=== PATIENT | female | born 1960 | race Caucasian/White ===

== ENCOUNTER → 2021-09-24 12:43 | Outpatient (CLI) | payer SELFPAY ==
--- NOTE | 2021-09-24 12:59 | XR_ITS ---
PROCEDURE: XR ANKLE LT MIN 3V CLINICAL INDICATION: FALL COMPARISON: No exams were available for comparison FINDINGS: No fracture or dislocation. No lytic or blastic change. There is normal mineralization. Minimal spurring along the anterior distal tibia. Prominent posterior talar process. Other findings:None. IMPRESSION: No acute findings. Dictated by: Tereso Riley MD 09/24/2021 18:41 Tereso Riley MD in [place] 09/24/2021 18:41
--- NOTE | 2021-09-24 12:59 | XR_ITS ---
PROCEDURE: XR LUMBAR SPINE MIN 4V CLINICAL INDICATION: COMPARISON: No exams were available for comparison FINDINGS: No fracture or dislocation. Degenerative disc disease L5-S1. 4 mm anterolisthesis L4 on L5. Facet arthritic changes L5-S1. no lytic or blastic change. Mild degenerative changes of the hips and SI joints IMPRESSION: No acute fracture. Degenerative changes as described above Dictated by: Tereso Riley MD 09/24/2021 18:38 Tereso Riley MD in [place] 09/24/2021 18:38
--- NOTE | 2021-09-24 12:59 | XR_ITS ---
PROCEDURE: XR SHOULDER RT MIN 2V CLINICAL INDICATION: FALL Pain COMPARISON: No exams were available for comparison FINDINGS: No fracture or dislocation. No lytic or blastic change. There is normal mineralization. Subacromial stenosis. Mild osteoarthritic change of glenohumeral joint. Other findings:None. IMPRESSION: No acute findings. Dictated by: Tereso Riley MD 09/24/2021 18:40 Tereso Riley MD in [place] 09/24/2021 18:40
--- NOTE | 2021-09-24 12:59 | XR_ITS ---
PROCEDURE: XR HIP RT 2-3V W/PELVIS CLINICAL INDICATION: FALL Pain COMPARISON: No exams were available for comparison FINDINGS: No fracture or dislocation. Mild osteoarthritic change of the IMPRESSION: No acute findings. Dictated by: Tereso Riley MD 09/24/2021 18:39 Tereso Riley MD in [place] 09/24/2021 18:39
== END ==
PROVIDERS: PCP Family Medicine; Visit Provider Emergency Medicine
DX: M54.50 Low back pain, unspecified (principal); M25.551 Pain in right hip; M25.572 Pain in left ankle and joints of left foot; M25.511 Pain in right shoulder; W19.XXXA Unspecified fall, initial encounter
CPT/HCPCS: 72110; 73030; 73502; 73610

== ENCOUNTER 2022-03-18 11:26 | Emergency (ER) | payer SELFPAY ==
[2022-03-18 11:27] VITALS: BP 128/79; PULSE 73; RESP 20; TEMP 36.6; O2SAT 97; BMI 29.8
--- NOTE | 2022-03-18 11:46 | ECG_ITS ---
APPROVED REPORT Exam: Resting ECG HR:78 bpm ECG Measurements Heart Rate 78 AXES ND 148 P 56 QRSd 87 QRS 23 QT 390 T 71 QTc 423 Conclusion SINUS RHYTHM NORMAL ECG UNCONFIRMED REPORT Electronically signed by : Mik Jackson MD 03/19/2022 21:11:28
--- NOTE | 2022-03-18 11:57 | CT_ITS ---
FINAL REPORT CLINICAL HISTORY: dizzy FINDINGS: Axial images of the head were obtained without contrast. Coronal reformatted images were also obtained.This study was performed with techniques to keep radiation doses as low as reasonably achievable (ALARA). Individualized dose reduction techniques using automated exposure control or adjustment of mA and/or kV according to the patient's size were employed. There is no evidence of intracranial hemorrhage or mass. The ventricular size is within normal limits. There is no evidence of shift of the midline structures. No abnormal extra axial fluid collection is identified. No skull abnormality is seen on the bone window images. IMPRESSION: No acute intracranial abnormality. Reviewed, Interpreted and Dictated by Jam Narayanan III, MD Transcribed by Fercho Maldonado Authenticated by Jam Narayanan III, MD on 03/18/2022 12:39:08 PM [facility]
[2022-03-18 12:01] VITALS: BP 121/75; PULSE 74; RESP 18; O2SAT 96
[2022-03-18 12:12] LABS: Alanine Aminotransferase 27 U/L (12-78); Albumin Level 4.3 g/dl (3.5-5.0); Albumin/Globulin Ratio 1.4 (1.1-1.8); Alkaline Phosphatase 70 U/L (38-126); Anion Gap 12.6 mEq/L (5-15); Aspartate Amino Transferase 29 U/L (14-36); Basophils # 0.2 K/mm3 (0-0.2); Basophils % 2.8 % (0.1-2.0); Bilirubin,Total 0.5 mg/dl (0.2-1.3); Blood Urea Nitrogen 17 mg/dl (7-17); Calcium 9.2 mg/dl (8.4-10.2); Carbon Dioxide 23 mmol/L (22.0-30.0); Chloride 107 mmol/L (98-107); Creatinine Clearance Estimated 68 mL/min (50-200); Eosinophils # 0.2 K/mm3 (0.0-0.4); Eosinophils % 3.8 % (0.1-12.0); Estimated Glomerular Filt Rate 85 ml/min (>60); GFR (African American) 103 ML/MIN (>60); Glucose 131 mg/dl (74-100); Hematocrit 42.6 % (37.0-47.0); Hemoglobin 14.3 g/dL (12.2-16.2); Lipase 157 U/L (23-300); Lymphocytes # 2.2 K/mm3 (0.7-4.5); Lymphocytes % 35.9 % (10-50); Mean Corpuscular HGB Conc 33.7 g/dL (31.8-35.4); Mean Corpuscular Hemoglobin 29.5 pg (27.0-31.2); Mean Corpuscular Volume 87.6 fl (81-99); Mean Platelet Volume 7.8 fl (7.4-10.4); Monocytes # 0.3 K/mm3 (0.1-1.0); Monocytes % 4.6 % (1.7-9.3); Neutrophils # 3.2 K/mm3 (1.8-7.8); Neutrophils % 52.9 % (37.0-80.0); Platelet Count 281 K/mm3 (142-424); Potassium 3.6 mmoL/L (3.5-5.1); Red Blood Count 4.86 M/mm3 (4.20-5.40); Red Cell Distribution Width 13.6 % (11.5-17.5); Sodium 139 mmol/L (136-145); Total Protein,Serum 7.3 g/dl (6.3-8.2); White Blood Count 6.1 K/mm3 (4.8-10.8)
[2022-03-18 12:26] LABS: Troponin I < 0.01 ng/ml (0.00-0.034)
--- NOTE | 2022-03-18 12:27 | HMH.EDDIZZ ---
ED Disposition Clinical Impression: Benign paroxysmal positional vertigo Qualifiers: Laterality: unspecified laterality Qualified Code(s): H81.10 - Benign paroxysmal vertigo, unspecified ear Disposition: Home, Self-Care Condition on Discharge: Good Instructions: Vertigo Prescriptions: Meclizine HCl [Meclizine 25mg Tab] 25 mg PO BID #20 tab [facility] Ondansetron [Zofran 4mg ODT] 4 mg PO BIDP PRN #10 tab PRN Reason: Nausea Transmission Status: [facility] Referrals: Miller Lloyd MD [Primary Care Provider] - - Critical Care Critical Care Time: No Attestation: On 03/18/22, the high probability of a clinically significant, sudden or life threatening deterioration of the following system(s) required my full and direct attention, intervention and personal management. The time I documented below is in addition to time spent performing reported procedures but includes the following listed in this critical care notation. Medical Decision Making - Medical Records Medical records reviewed: Yes: I reviewed the patient's medical records. - Tu Inquiry Pt receiving controlled substance: No Vital Signs: 03/18/22 11:27 Temperature 97.9 F Temperature Source Oral Pulse Rate [Left Radial] 73 Respiratory Rate 20 Blood Pressure [Right Arm] 128/79 Blood Pressure Mean [Right Arm] 95 Blood Pressure Source [Right Arm] Automatic Cuff Blood Pressure Position [Right Arm] Sitting 02 Sat by Pulse Oximetry 97 Oxygen Delivery Method Room Air - Lab Data Lab Results 03/18/22 11:50: WBC 6.1, RBC 4.86, Hgb 14.3, Hct 42.6, MCV 87.6, MCH 29.5, MCHC 33.7, RDW 13.6, Plt Count 281, MPV 7.8, Neut % (Auto) 52.9, Lymph % (Auto) 35.9, [place] % (Auto) 4.6, Eos % (Auto) 3.8, Baso % (Auto) 2.8 H, Neut # (Auto) 3.2, Lymph # (Auto) 2.2, [place] # (Auto) 0.3, Eos # (Auto) 0.2, Baso # (Auto) 0.2 03/18/22 11:50: Sodium 139, Potassium 3.6, Chloride 107, Carbon Dioxide 23, Anion Gap 12.6, BUN 17, Creatinine 0.70, Estimated Creat Clear 68, Estimated GFR 85, Est GFR ( Amer) 103, Glucose 131 H, Calcium 9.2, Total Bilirubin 0.5, AST 29, ALT 27, Alkaline Phosphatase 70, Troponin I < 0.01, Total Protein 7.3, Albumin 4.3, Globulin 3.0, Albumin/Globulin Ratio 1.4, Lipase 157, TSH 2.31 Result diagrams: 03/18/22 11:50 03/18/22 11:50 Orders (Tests/Meds): ED MEDICATIONS Discontinued Medications Generic Name Dose Route Start Last Admin Trade Name Freq PRN Reason Stop Dose Admin Diazepam 5 mg 03/18/22 13:02 03/18/22 13:15 Diazepam 5mg Tablet PO 03/18/22 13:03 5 mg ONCE ONE Administration Sodium Chloride 1,000 mls @ 999 mls/hr 03/18/22 12:15 03/18/22 12:11 Sod Chlor 0.9% 1000ml Bag IV 03/18/22 13:15 999 mls/hr .Q1H1M GERALD Administration Meclizine HCl 50 mg 03/18/22 12:09 03/18/22 12:11 Meclizine 25mg Tablet PO 03/18/22 12:10 50 mg ONCE ONE Administration Ondansetron HCl 4 mg 03/18/22 12:09 03/18/22 12:11 Ondansetron 4mg/2ml Vial IV 03/18/22 12:10 4 mg ONCE ONE Administration Ondansetron HCl 4 mg 03/18/22 13:02 03/18/22 13:15 Ondansetron 4mg/2ml Vial IV 03/18/22 13:03 4 mg ONCE ONE Administration ORDERS Category Date Time Status Troponin I Q3H Lab 03/18/22 15:00 Ordered Troponin I Q3H Lab 03/18/22 18:00 Ordered - CT Data CT Scan: Head Time Received: 13:[address] Reviewed: Yes: I have reviewed the patient's CT results, I have viewed the radiologist's interpretation Preliminary Findings: Normal/NAD - ECG Data Tracing #1 I reviewed this ECG and interpreted as documented below: ECG initial impression date: 03/18/22 ECG initial impression time: 11:46 ECG normal with no acute: arrhythmias, ischemia, conduction abnormalities, chamber hypertrophy Normal Sinus Rhythm: Yes - Reevaluation(s) Time: 13:17 Reevaluation #1: On reevaluation, the patient is feeling better. Laboratory work unremarkable.
[2022-03-18 12:30] VITALS: BP 117/65; PULSE 71; RESP 18; O2SAT 96
[2022-03-18 12:43] LABS: Thyroid Stimulating Hormone 2.31 uIU/mL (0.465-4.68)
[2022-03-18 13:00] VITALS: BP 112/66; PULSE 63; RESP 18; O2SAT 97
[2022-03-18 13:30] VITALS: BP 112/66; PULSE 63; RESP 18; TEMP 36.6; O2SAT 97
== END 2022-03-18 13:36 | disposition home or self-care (01) ==
PROVIDERS: Emergency Provider Emergency Medicine; PCP Family Medicine
DX: H81.10 Benign paroxysmal vertigo, unspecified ear (principal)
CPT/HCPCS: 70450; 80053; 83690; 84443; 84484; 85025; 93005; 96361; 96374; 96375; 96376; 99284; J2405

== ENCOUNTER 2022-07-22 13:01 | Emergency (ER) | payer OTHER, SELFPAY ==
[2022-07-22 13:01] VITALS: BP 160/86; PULSE 90; RESP 18; TEMP 36.7; O2SAT 98; BMI 29.8
--- NOTE | 2022-07-22 13:08 | PC.NURSE ---
ED MD AT BEDSIDE FOR EVALUATION
--- NOTE | 2022-07-22 13:11 | XR_ITS ---
FINAL REPORT CLINICAL HISTORY: trauma, laceration to palm and fingers FINDINGS: LEFT HAND 2 views were obtained. There is no acute fracture or dislocation. There is mild degenerative change. There is no soft tissue abnormality. No foreign body is identified. IMPRESSION: No acute bony abnormality. No foreign body is identified. Reviewed, Interpreted and Dictated by Jam Narayanan III, MD Transcribed by Gail Isbell Authenticated and [facility]
--- NOTE | 2022-07-22 13:14 | HMH.EDWNDL ---
Discharge Plan Disposition Patient Disposition: Home, Self-Care Condition: Good Prescriptions Prescriptions: New cephalexin [cephalexin] 500 mg tablet 500 mg PO Q8 Qty: 30 0RF hydrocodone-acetaminophen 5-325 mg tablet 1 tab PO QID PRN (Reason: pain) Qty: 20 0RF No Action ondansetron 4 MG tablet,disintegrating 4 mg PO BIDP PRN (Reason: Nausea) Qty: 10 0RF meclizine 25 MG tablet,chewable 25 mg PO BID Qty: 20 0RF Activity Restrictions/Add. Instructions Additional Instructions/Restrictions: Cleanse wound daily with cool running water and apply antibiotic ointment and nonadhesive dressing such as Band-Aids. Ice and elevate as needed for discomfort and swelling. Wear the splint. You will be contacted by the hand center for follow-up next Wednesday. Return for concerns such as signs of infection to include increasing redness. Questions or concerns related to your hand to call [phone]. Clinical Impressions Clinical Impression: Laceration Instructions Patient Instructions: DI for Laceration Repair Discharge ED Provider: Mohit Prado Wound/Laceration HPI General Chief Complaint: Wound/Laceration Stated Complaint: lt hand lac Time Seen by Provider: 07/22/22 13:07 Mode of Arrival: Wheelchair Limitations: No Limitations Description of Symptoms (Recalled from ER Triage Doc. by RN): PT WAS HOLDING THE BLADE OF HEDGE TRIMMERS AND TURNED THEM ON. LACERATION TO LEFT INDEX AND RING FINGER History of Present Illness HPI narrative: Presents with multiple lacerations to the left hand sustained when she was trying to start hedge tremor while holding the hedge tremor blade reportedly. Aside from the hand injury she denies additional injury she describes the pain as moderate to severe and worse with movement of the digits. Related Data Previous Rx's Medication Instructions Recorded meclizine 25 mg chewable tablet 25 mg PO BID #20 tabs 03/18/22 ondansetron 4 mg disintegrating 4 mg PO BIDP PRN Nausea #10 tabs 03/18/22 tablet cephalexin 500 mg tablet 500 mg PO Q8 uti #30 tabs 07/22/22 hydrocodone 5 mg-acetaminophen 325 1 tab PO QID PRN pain #20 tabs 07/22/22 mg tablet Allergies Allergy/AdvReac Type Severity Reaction Status Date / Time meloxicam [From Mobic] Allergy Verified 03/18/22 11:57 [facility] Medical History No significant past medical history Family History Other No significant family history Social History Smoking Status: Never smoker alcohol intake: never current occupational status: retired Travel in the last 8 weeks: None ROS Obtained: Yes All systems reviewed & no additional complaints except as documented Constitutional Constitutional: Reports system reviewed and no additional complaints, except as documented Physical Exam General General appearance: alert and anxious Head Head exam: atraumatic Eye Eye exam: Present normal appearance Neck Neck exam: Present normal inspection Chest Chest inspection: Present normal inspection Respiratory Respiratory exam: Present normal lung sounds bilaterally Cardiovascular Cardiovascular exam: Present regular rate and normal rhythm Abdominal Exam Abdominal exam: Present soft; Absent tenderness External exam: Present normal external exam Extremities Exam Extremities exam: Present other (The volar aspect of the left hand there are multiple lacerations noted to the right ring finger as well as the left index finger. Positive range of motion. Neurovascular appear to be intact.) Back Exam Back exam: Present normal inspection Neurological Exam Neurological exam: Present alert and oriented X3 Psychiatric Psychiatric exam: Present anxious Skin Skin exam: Present warm and dry Lymphatic Lymphatic Findings: no adenopathy Medical Decision Making Tu Inquiry Pt rece
--- NOTE | 2022-07-22 13:18 | PC.NURSE ---
portable rad at the bedside
--- NOTE | 2022-07-22 13:23 | PC.NURSE ---
XR AT BEDSIDE
[2022-07-22 13:30] VITALS: BP 152/90; PULSE 90; RESP 18; O2SAT 95
[2022-07-22 14:00] VITALS: BP 132/72; PULSE 74; RESP 18; O2SAT 96
--- NOTE | 2022-07-22 14:24 | PC.NURSE ---
ER DOCTOR ASKED FOR A HAND SPECIALIST TO BE CALLED. CONTACT WAS MADE WITH [facility] IN [place]. THEY DID NOT ACCEPT PTS INSURANCE CALLED [facility] PER THE ER DOCTOR TO SPEAK WITH A HAND SURGEON MADE CONTACT WITH AND AWAITING A CALLBACK
[2022-07-22 14:30] VITALS: BP 132/68; PULSE 67; RESP 18; O2SAT 96
[2022-07-22 15:00] VITALS: BP 134/74; PULSE 66; RESP 17; O2SAT 97
--- NOTE | 2022-07-22 15:01 | PC.NURSE ---
ROUNDED ON PT, WARM BLANKET PROVIDED
--- NOTE | 2022-07-22 15:04 | PC.NURSE ---
CALLED [facility] AGAIN TO CHECK ON THE STATUS OF THE HAND SURGEON AND WAS ADVISED THAT THEY WERE WORKING ON GETTING BACK TO [place].
--- NOTE | 2022-07-22 15:33 | PC.NURSE ---
ED SPEAKING WITH HAND
--- NOTE | 2022-07-22 15:34 | PC.NURSE ---
[facility] CALLED BACK TO SPEAK WITH ER DOCTOR
--- NOTE | 2022-07-22 15:43 | PC.NURSE ---
ED MD AT BEDSIDE
[2022-07-22 15:44] VITALS: BMI 21.6
[2022-07-22 16:40] VITALS: BP 134/74; PULSE 66; RESP 17; TEMP 36.8; O2SAT 100
== END 2022-07-22 16:40 | disposition home or self-care (01) ==
PROVIDERS: Emergency Provider Emergency Medicine; PCP Family Medicine
DX: S61.214A Laceration without foreign body of right ring finger without damage to nail, initial encounter (principal); S61.217A Laceration without foreign body of left little finger without damage to nail, initial encounter; W29 Contact with other powered hand tools and household machinery; Y93.H2 Activity, gardening and landscaping; Y92.096 Garden or yard of other non-institutional residence as the place of occurrence of the external cause; Z23 Encounter for immunization; Z79.899 Other long term (current) drug therapy
CPT/HCPCS: 73120; 90471; 90715; 99283

== ENCOUNTER 2022-09-02 23:14 | Emergency (ER) | payer OTHER, SELFPAY ==
[2022-09-02 23:16] VITALS: BP 155/80; PULSE 79; RESP 16; TEMP 36.6; O2SAT 98; BMI 29.8
--- NOTE | 2022-09-02 23:46 | HMH.EDGENADL ---
Discharge Plan Disposition Patient Disposition: Home, Self-Care Condition: Good Prescriptions Prescriptions: New doxycycline hyclate 100 mg capsule 100 mg PO BID 10 Days Qty: 20 0RF ondansetron 4 mg tablet,disintegrating 4 mg PO Q8H PRN (Reason: nausea and vomiting) 4 Days Qty: 12 0RF No Action cephalexin [cephalexin] 500 mg tablet 500 mg PO Q8 Qty: 30 0RF hydrocodone-acetaminophen 5-325 mg tablet 1 tab PO QID PRN (Reason: pain) Qty: 20 0RF ondansetron 4 MG tablet,disintegrating 4 mg PO BIDP PRN (Reason: Nausea) Qty: 10 0RF meclizine 25 MG tablet,chewable 25 mg PO BID Qty: 20 0RF Referrals Follow up/Referrals: Joann Tubbs [Primary Care Provider] - See instructions Activity Restrictions/Add. Instructions Additional Instructions/Restrictions: You were evaluated in the emergency department today. 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 Also take yizj-pub-yjrmfvb medications, such as Flonase and allergy medications to support you through this illness. Follow-up with your primary care provider over the next 3 days to ensure that you are doing well. Return to the emergency department for any new or worsening symptoms. Clinical Impressions Clinical Impression: Community acquired pneumonia, Sinusitis Instructions Patient Instructions: Pneumonia-Adult, DI for Sinusitis Discharge ED Provider: Jasmina Garza General Adult HPI General Chief complaint: Upper Respiratory Infection Stated complaint: Cough,chest congestion Time Seen by Provider: 09/02/22 23:17 Mode of Arrival: Ambulatory Limitations: No Limitations Description of Symptoms (Recalled from ER Triage Doc. by RN): pt c/o cough, congestion, TAPIA, runny nose x several days. History of Present Illness HPI narrative: This patient is a 62-year-old female with history of BPPV presenting to the emergency department for evaluation of cough and sinus congestion that have been worsening over the last week. She initially had a period where she started to get better, however her symptoms then started getting worse today. She states that she feels like she has stuff deep within her chest that she is not able to cough up. She has been taking mvof-vbu-doovxlp medications at home with no significant improvement. Nothing seems to make her symptoms worse. She has no other concerns at this time. She has no history of cardiopulmonary issues and is not a smoker. She denies any chest pain, shortness of breath, abdominal pain, vomiting, changes bowel movements, rashes, or swelling. Related Data Previous Rx's Medication Instructions Recorded meclizine 25 mg chewable tablet 25 mg PO BID #20 tabs 03/18/22 ondansetron 4 mg disintegrating 4 mg PO BIDP PRN Nausea #10 tabs 03/18/22 tablet cephalexin 500 mg tablet 500 mg PO Q8 uti #30 tabs 07/22/22 hydrocodone 5 mg-acetaminophen 325 1 tab PO QID PRN pain #20 tabs 07/22/22 mg tablet doxycycline hyclate 100 mg capsule 100 mg PO BID 10 days #20 caps 09/02/22 ondansetron 4 mg disintegrating 4 mg PO Q8H PRN nausea and 09/02/22 tablet vomiting 4 days #12 tabs Allergies Allergy/AdvReac Type Severity Reaction Status Date / Time meloxicam [From [facility]] Allergy Verified 03/18/22 11:57 [facility] Medical History No significant past medical history Family History Other No significant family history Social History Smoking Status: Never smoker alcohol intake: never current occupational status: retired Travel in the last 8 weeks: None ROS Obtained: Yes All systems reviewed & no additional complaints except as documented 14 point review of systems obtained and negative except as mentioned in HPI. Physical Exam General General appearance: alert and in no apparent distress
[2022-09-03 00:17] VITALS: BP 149/73; PULSE 79; RESP 16; TEMP 36.6; O2SAT 98
== END 2022-09-03 00:19 | disposition home or self-care (01) ==
PROVIDERS: Emergency Provider Emergency Medicine; PCP Emergency Medicine
DX: J18.9 Pneumonia, unspecified organism (principal); F32.9 Major depressive disorder, single episode, unspecified; Z88.8 Allergy status to other drugs, medicaments and biological substances
CPT/HCPCS: 99283

== ENCOUNTER 2022-09-18 17:25 | Emergency (ER) | payer OTHER, SELFPAY ==
[2022-09-18 18:10] VITALS: BP 141/86; PULSE 62; RESP 18; TEMP 36.8; O2SAT 98; BMI 29.8
--- NOTE | 2022-09-18 18:52 | EXP.UTC ---
Discharge Plan Disposition Patient Disposition: Home, Self-Care Condition: Good Prescriptions Prescriptions: New amoxicillin-pot clavulanate 875-125 mg Tablet 1 tab PO Q12H 7 Days Qty: 14 0RF guaifenesin [Mucinex] 600 mg tablet extended release 12hr 600 mg PO BID PRN (Reason: cough) Qty: 20 0RF No Action cephalexin [cephalexin] 500 mg tablet 500 mg PO Q8 Qty: 30 0RF hydrocodone-acetaminophen 5-325 mg tablet 1 tab PO QID PRN (Reason: pain) Qty: 20 0RF doxycycline hyclate 100 mg capsule 100 mg PO BID 10 Days Qty: 20 0RF ondansetron 4 mg tablet,disintegrating 4 mg PO Q8H PRN (Reason: nausea and vomiting) 4 Days Qty: 12 0RF ondansetron 4 MG tablet,disintegrating 4 mg PO BIDP PRN (Reason: Nausea) Qty: 10 0RF meclizine 25 MG tablet,chewable 25 mg PO BID Qty: 20 0RF Referrals Follow up/Referrals: Miller Lloyd MD [Primary Care Provider] - See instructions Activity Restrictions/Add. Instructions Additional Instructions/Restrictions: Take medication as prescribed Continue to use your Flonase as prescribed Follow up with your Family Doctor next week if no improvement or any worsening of symptoms Return if needed Straight to ER if any life threatening symptoms Clinical Impressions Clinical Impression: Otitis media Instructions Patient Instructions: Middle Ear Infection, DI for Tooth Abscess Discharge ED Provider: Iliana Dennis [facility] General Stated complaint: RSV R ear Mode of Arrival: Ambulatory Source of Information: Patient Limitations: No Limitations Time Seen by Provider: 09/18/22 18:53 Description of Symptoms (Recalled from Triage Doc. by RN): PATIENT C/O RIGHT EAR ACHE, TOOTHACHE, AND CHEST CONGESTION HEENT Symptoms (Recalled from RN notes): Yes Resp Symptoms (Recalled from RN notes): No Skin Symptoms (Recalled from RN notes): No MS Symptoms (Recalled from RN notes): No Functional Status (Recalled from RN notes): WNL History of Present Illness Provider Complaint: Patient states that she had RSV a few weeks ago and finished her medication that she was on for that but now has started having pain in her right ear, having pain in right lower back tooth and pressure in right side of sinuses States that she wasnt sure if she may have an ear infection or if her tooth is causing her ear to hurt so she came in to get it checked Related Data Previous Rx's Medication Instructions Recorded meclizine 25 mg chewable tablet 25 mg PO BID #20 tabs 03/18/22 ondansetron 4 mg disintegrating 4 mg PO BIDP PRN Nausea #10 tabs 03/18/22 tablet cephalexin 500 mg tablet 500 mg PO Q8 uti #30 tabs 07/22/22 hydrocodone 5 mg-acetaminophen 325 1 tab PO QID PRN pain #20 tabs 07/22/22 mg tablet doxycycline hyclate 100 mg capsule 100 mg PO BID 10 days #20 caps 09/02/22 ondansetron 4 mg disintegrating 4 mg PO Q8H PRN nausea and 09/02/22 tablet vomiting 4 days #12 tabs amoxicillin 875 mg-potassium 1 tab PO Q12H 7 days #14 tabs 09/18/22 clavulanate 125 mg tablet guaifenesin 600 mg tablet, 600 mg PO BID PRN cough #20 tabs 09/18/22 extended release 12 hr (Mucinex) Allergies Allergy/AdvReac Type Severity Reaction Status Date / Time meloxicam [From Mobic] Allergy Verified 03/18/22 11:57 Worker's Comp Is this a Worker's Comp case?: No PFSH PFSH Surgical History (Updated 09/18/22 @ 18:25 by Amy Key RN) History of colonoscopy History of hysterectomy Family History Other No significant family history Social History (Updated 09/18/22 @ 18:25 by Amy Key RN) Smoking Status: Never smoker alcohol intake: never current occupational status: retired and other Travel in the last 8 weeks: None ROS Obtained: Yes All systems reviewed & no additional complaints except as documented and Yes Systems reviewed as appropriate & no additional complaints except as documented Constitutional Constitu
[2022-09-18 19:00] VITALS: BP 141/86; PULSE 62; RESP 18; TEMP 36.8; O2SAT 98
== END 2022-09-18 19:18 | disposition home or self-care (01) ==
PROVIDERS: Emergency Provider Nurse Practitioner; PCP Family Medicine
DX: H66.90 Otitis media, unspecified, unspecified ear (principal)
CPT/HCPCS: 99212; G0463

== ENCOUNTER 2023-08-29 15:22 | Emergency (ER) | payer OTHER, SELFPAY ==
[2023-08-29 15:24] VITALS: BP 150/79; PULSE 72; RESP 18; TEMP 36.7; O2SAT 96; BMI 29.8
--- NOTE | 2023-08-29 16:35 | EXP.UTC ---
Discharge Plan Disposition Patient Disposition: Home, Self-Care Condition: Good Prescriptions Prescriptions: New meclizine 25 mg tablet 25 mg PO Q6HP PRN (Reason: dizziness) Qty: 30 0RF ondansetron 4 mg Tablet,Disintegrating 4 mg PO Q8H PRN (Reason: Nausea) Qty: 20 0RF No Action hydrocodone-acetaminophen 5-325 mg tablet 1 tab PO QID PRN (Reason: pain) Qty: 20 0RF meclizine 25 MG tablet,chewable 25 mg PO BID Qty: 20 0RF Referrals Follow up/Referrals: Miller Lloyd MD [Primary Care Provider] - See instructions Activity Restrictions/Add. Instructions Additional Instructions/Restrictions: Drink plenty of fluids. Take tylenol or ibuprofen for pain or fever. Take the medications as directed. Follow up with your regular doctor. GO TO THE ER FOR ANY WORSENING SYMPTOMS The meclizine (antivert) will make you drowsy, so don't drive or operate heavy machinery after taking it. Clinical Impressions Clinical Impression: Benign paroxysmal positional vertigo Instructions Patient Instructions: DI for Vertigo, DI for Benign Paroxysmal Positional Vertigo Discharge ED Provider: Quinten Capps [facility] General Stated complaint: dizzy,sick at her stomach,headache Time Seen by Provider: 08/29/23 16:35 Related Data Previous Rx's Medication Instructions Recorded meclizine 25 mg chewable tablet 25 mg PO BID #20 tabs 03/18/22 hydrocodone 5 mg-acetaminophen 325 1 tab PO QID PRN pain #20 tabs 07/22/22 mg tablet meclizine 25 mg tablet 25 mg PO Q6HP PRN dizziness #30 08/29/23 tabs ondansetron 4 mg disintegrating 4 mg PO Q8H PRN Nausea #20 tabs 08/29/23 tablet Allergies Allergy/AdvReac Type Severity Reaction Status Date / Time meloxicam [From Mobic] Allergy Verified 08/29/23 16:59 [facility] Disclaimer: The information contained in this section may have been updated after the patient was seen, as this information can be updated by other users. Surgical History History of colonoscopy History of hysterectomy Family History Other No significant family history Social History Smoking Status: Never smoker alcohol intake: never current occupational status: retired and other Travel in the last 8 weeks: None ROS Obtained: Yes All systems reviewed & no additional complaints except as documented Constitutional Constitutional: Denies chills, Denies fever(s), Reports headache(s) and Denies weakness Eyes Eyes: Denies eye discharge and Denies loss of vision ENT Ears, Nose, Mouth, and Throat: Denies disequilibrium, Denies dizziness, Denies otalgia, Reports headache(s), Denies sore throat and Denies vertigo Cardiovascular Cardiovascular: Denies chest pain and Denies syncope Respiratory Respiratory: Denies shortness of breath, Denies chest congestion, Denies cough, Denies stridor and Denies wheezing Gastrointestinal Gastrointestingal: Denies nausea or vomiting Musculoskeletal Musculoskeletal: Reports system reviewed and no additional complaints, except as documented, Denies abnormal gait, Denies arthralgias and Denies numbness Integumentary/Breasts Skin/Breast: Denies rash Neurologic Neurologic: Denies abnormal gait, Denies abnormal speech, Denies confusion, Denies disequilibrium, Denies dizziness, Denies focal weakness, Reports headache(s), Denies lack of coordination, Denies loss of vision, Denies memory loss, Denies numbness, Denies paresthesias, Denies radicular pain, Denies seizure-like activity, Denies syncope, Denies tremor(s), Denies vertigo and Denies weakness Allergic/Immunologic Allergic/Immunologic: Denies wheezing Physical Exam General General appearance: alert and in no apparent distress Head Head exam: atraumatic, normocephalic and normal inspection Eye Eye exam: Present normal appearance, PERRL and EOMI
[2023-08-29 16:43] VITALS: BMI 29.8
[2023-08-29 17:24] LABS: UTC Influenza A Antigen Negative (Negative); UTC Influenza B Antigen Negative (Negative)
[2023-08-29 17:37] LABS: Anion Gap 13.8 mEq/L (5-15); Blood Urea Nitrogen 20 mg/dl (7-17); Calcium 9.3 mg/dl (8.4-10.2); Carbon Dioxide 23 mmol/L (22.0-30.0); Chloride 106 mmol/L (98-107); Creatinine Clearance Estimated 66 mL/min (50-200); Estimated Glomerular Filt Rate 84 ml/min (>60); GFR (African American) 102 ML/MIN (>60); Glucose 100 mg/dl (74-100); Potassium 3.8 mmoL/L (3.5-5.1); Sodium 139 mmol/L (136-145)
[2023-08-29 17:38] LABS: Basophils % 0.4 % (0.1-2.0); Eosinophils # 0.3 K/mm3 (0.0-0.4); Eosinophils % 3.7 % (0.1-12.0); Hematocrit 43.8 % (37.0-47.0); Lymphocytes # 1.9 K/mm3 (0.7-4.5); Lymphocytes % 25.3 % (10-50); Mean Corpuscular HGB Conc 34.3 g/dL (31.8-35.4); Mean Corpuscular Hemoglobin 30.5 pg (27.0-31.2); Mean Corpuscular Volume 88.8 fl (81-99); Monocytes # 0.3 K/mm3 (0.1-1.0); Monocytes % 4.4 % (1.7-9.3); Neutrophils # 4.9 K/mm3 (1.8-7.8); Neutrophils % 66.1 % (37.0-80.0); Platelet Count 247 K/mm3 (142-424); Red Blood Count 4.94 M/mm3 (4.20-5.40); Red Cell Distribution Width 13.8 % (11.5-17.5); White Blood Count 7.5 K/mm3 (4.8-10.8)
[2023-08-29 18:12] VITALS: BP 150/79; PULSE 72; RESP 18; TEMP 36.7; O2SAT 96
== END 2023-08-29 18:12 | disposition home or self-care (01) ==
PROVIDERS: Emergency Provider Nurse Practitioner Family; PCP Family Medicine
DX: H81.10 Benign paroxysmal vertigo, unspecified ear (principal); R51.9 Headache, unspecified
CPT/HCPCS: 80048; 85025; 87804; 96372; 99212; 99214; G0463

== ENCOUNTER 2024-02-06 05:28 | Emergency (ER) | payer MEDICAID, OTHER, SELFPAY ==
[2024-02-06] VITALS (8 sets, daily range): BP systolic 121–139; BP diastolic 59–81; PULSE 59–76; RESP 15–21; TEMP 36.7–37.1; O2SAT 94–99; BMI 29.8
--- NOTE | 2024-02-06 05:29 | ECG_ITS ---
APPROVED REPORT Exam: Resting ECG HR:66 bpm ECG Measurements Heart Rate 66 AXES AR 150 P 71 QRSd 82 QRS 65 QT 408 T 79 QTc 421 Conclusion SINUS RHYTHM NORMAL ECG UNCONFIRMED REPORT Electronically signed by : MAO MORALES, 02/07/2024 06:30:01
--- NOTE | 2024-02-06 05:39 | XR_ITS ---
PROCEDURE INFORMATION: Exam: XR Chest Exam date and time: 02/06/2024 5:42 AM Age: 63 years old Clinical indication: Pain; Chest pressure; Additional info: Cp TECHNIQUE: Imaging protocol: Radiologic exam of the chest. Views: 1 view. COMPARISON: CR XR SHOULDER RT MIN 2V 09/24/2021 1:06 PM FINDINGS: Lungs: Unremarkable. No consolidation. Pleural spaces: Unremarkable. No pleural effusion. No pneumothorax. Heart/Mediastinum: Unremarkable. No cardiomegaly. Bones/joints: Unremarkable. IMPRESSION: No acute findings.
[2024-02-06 05:46] LABS: Basophils # 0.1 K/mm3 (0-0.2); Basophils % 1.2 % (0.1-2.0); Eosinophils # 0.4 K/mm3 (0.0-0.4); Eosinophils % 5.5 % (0.1-12.0); Hematocrit 44.3 % (37.0-47.0); Hemoglobin 14.2 g/dL (12.2-16.2); Lymphocytes # 2.6 K/mm3 (0.7-4.5); Lymphocytes % 39.1 % (10-50); Mean Corpuscular HGB Conc 32.1 g/dL (31.8-35.4); Mean Corpuscular Hemoglobin 29.4 pg (27.0-31.2); Mean Corpuscular Volume 91.4 fl (81-99); Mean Platelet Volume 7.7 fl (7.4-10.4); Monocytes # 0.3 K/mm3 (0.1-1.0); Neutrophils # 3.2 K/mm3 (1.8-7.8); Neutrophils % 49.1 % (37.0-80.0); Platelet Count 274 K/mm3 (142-424); Red Blood Count 4.85 M/mm3 (4.20-5.40); Red Cell Distribution Width 13.5 % (11.5-17.5); White Blood Count 6.6 K/mm3 (4.8-10.8)
[2024-02-06] MEDS: ACETAMINOPHEN 500MG TAB 1000 MG PO (05:46)
[2024-02-06] MEDS: BELLADONNA ALKALOIDS 60 ML ML PO (05:46)
[2024-02-06] MEDS: ASPIRIN 81MG CHEWABLE TABLET 81 MG PO (05:47)
--- NOTE | 2024-02-06 05:48 | HMH.EDGENADL ---
Discharge Plan Disposition Patient Disposition: Still a Patient Condition: Good Prescriptions Prescriptions: New methocarbamol 500 mg tablet 500 mg PO Q8H Qty: 90 0RF No Action meclizine 25 mg tablet 25 mg PO Q6HP PRN (Reason: dizziness) Qty: 30 0RF Referrals Follow up/Referrals: Miller Lloyd MD [Primary Care Provider] - See instructions Mau Kim MD [Staff Physician] - See instructions Activity Restrictions/Add. Instructions Additional Instructions/Restrictions: As we discussed, your workup today is reassuring for any heart cause of your chest pain and back pain, that being said you do have some risk factors to have cardiac type chest pain. 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 I have placed a referral. Please take ibuprofen as needed for your symptoms. I have additionally prescribed a muscle relaxant that may help as well. Please return with any new or worsening symptoms. Clinical Impressions Clinical Impression: Chest pain at rest Discharge ED Provider: Ronald Sewell General Adult HPI <Jasbir Avery MD - Last Filed: 02/06/24 23:32> General Chief complaint: Chest Pain Stated complaint: Chest pain Time Seen by Provider: 02/06/24 05:30 Mode of Arrival: Ambulatory Source of Information: Patient Limitations: No Limitations Description of Symptoms (Recalled from ER Triage Doc. by RN): pt c/o dull achy lt side chest pain with radiatin down lt arm x 3 days. Pt states she took 3 81mg ASA 45 mins prior to arrival History of Present Illness HPI narrative: 63-year-old female with no reported past medical history presents with chest pain. She reports that central nature, associated with pressure. It radiates down the left arm as well. It has been going on for several days, but worsened last night/evening and has made it more difficult to sleep tonight. She took 381 mg aspirin shortly prior to arrival. She denies any cardiac history, denies any history of blood clots. Denies any hypertension hyperlipidemia etc. She reports no recent trauma fever or illness. Denies abdominal pain, nausea vomiting diarrhea. Related Data Previous Rx's Medication Instructions Recorded meclizine 25 mg tablet 25 mg PO Q6HP PRN dizziness #30 08/29/23 tabs methocarbamol 500 mg tablet 500 mg PO Q8H #90 tabs 02/06/24 Allergies Allergy/AdvReac Type Severity Reaction Status Date / Time meloxicam [From Mobic] Allergy Verified 08/29/23 16:59 PFSH <Jasbir Avery MD - Last Filed: 02/06/24 23:32> [facility] Disclaimer: The information contained in this section may have been updated after the patient was seen, as this information can be updated by other users. Surgical History History of hysterectomy History of colonoscopy Family History Other No significant family history Social History Smoking Status: Never smoker alcohol intake: never current occupational status: retired and other Travel in the last 8 weeks: None <Jasbir Avery MD - Last Filed: 02/06/24 23:32> ROS Obtained: Yes All systems reviewed & no additional complaints except as documented Physical Exam <Jasbir Avery MD - Last Filed: 02/06/24 23:32> General General appearance: alert and in no apparent distress Head Head exam: atraumatic and normocephalic Eye Eye exam: Present normal appearance, PERRL and EOMI ENT ENT exam: Present normal oropharynx and normal external ear exam Neck Neck exam: Present normal inspection and full ROM Chest Chest inspection: Present normal inspection and symmetric chest wall rise; Absent tenderness Respiratory Respiratory exam: Present normal lung sounds bilaterally; Absent respiratory distress Cardiovascular Cardiovascular exam: Present regular rate and normal rhythm Abdominal Exam Abdominal exam: Present soft; Absent distention, tenderness or guarding Extremities Exam Extremities exam: Present normal inspection; Absent edema or joint swelling Back Exam Back exam: Present normal inspection; Absent tenderness Neurological Exam Neurological exam: Present alert and oriented X3; Absent motor sensory deficit Psychiatric Psychiatric exam: Present normal affect and normal mood Skin Skin exam: Present warm, dry and normal color Lymphatic Lymphatic Findings: no adenopathy Medical Decision Making <Jasbir Avery MD - Last Filed: 02/06/24 23:32> Medical Records Medical records reviewed: Yes I reviewed the patient's medical records. Tu Inquiry Pt receiving controlled substance: No Tu was queried for this patient: No Vital Signs: 02/06/24 05:28 02/06/24 06:01 02/06/24 07:00 Temperature 98.1 F Temperature Source Oral Pulse Rate 71 Pulse Rate [Right] 76 Respiratory Rate 16 16 21 Blood Pressure 129/76 123/67 Blood Pressure [Right Arm] 139/59 L Blood Pressure Mean 93 Blood Pressure Mean [Right Arm] 85 02 Sat by Pulse Oximetry 99 96 02/06/24 07:30 02/06/24 08:00 02/06/24 08:30 Temperature Temperature Source Pulse Rate 75 69 59 L Pulse Rate [Right] Respiratory Rate 18 18 18 Blood Pressure 125/75 134/81 121/79 Blood Pressure [Right Arm] Blood Pressure Mean 88 93 89 Blood Pressure Mean [Right Arm] 02 Sat by Pulse Oximetry 94 L 96 02/06/24 09:00 02/06/24 09:25 Temperature 98.7 F Temperature Source Pulse Rate 70 75 Pulse Rate [Right] Respiratory Rate 16 15 Blood Pressure 122/75 122/75 Blood Pressure [Right Arm] Blood Pressure Mean 86 Blood Pressure Mean [Right Arm] 02 Sat by Pulse Oximetry 96 Lab Data Lab results reviewed: Yes I reviewed the patient's lab results. Lab Results 02/06/24 05:30: WBC 6.6, RBC 4.85, Hgb 14.2, Hct 44.3, MCV 91.4, MCH 29.4, MCHC 32.1, RDW 13.5, Plt Count 274, MPV 7.7, Neut % (Auto) 49.1, Lymph % (Auto) 39.1, Door % (Auto) 5.0, Eos % (Auto) 5.5, Baso % (Auto) 1.2, Neut # (Auto) 3.2, Lymph # (Auto) 2.6, Door # (Auto) 0.3, Eos # (Auto) 0.4, Baso # (Auto) 0.1, D-Dimer 0.64 H, Sodium 138, Potassium 3.8, Chloride 107, Carbon Dioxide 24, Anion Gap 10.8, BUN 19 H, Creatinine 0.70, Estimated Creat Clear 66, Estimated GFR 84, Est GFR ( Amer) 102, Glucose 111 H, Calcium 9.1, Total Bilirubin 0.4, AST 35, ALT 30, Alkaline Phosphatase 73, Troponin I < 0.01, Total Protein 7.4, Albumin 4.2, Globulin 3.2, Albumin/Globulin Ratio 1.3 02/06/24 08:27: Troponin I < 0.01 02/06/24 05:30 02/06/24 05:30 Orders (Tests/Meds): ED MEDICATIONS Discontinued Medications Generic Name Dose Route Start Last Admin Trade Name Jameel PRN Reason Stop Dose Admin Acetaminophen 1,000 mg 02/06/24 05:37 02/06/24 05:46 Acetaminophen 500mg Tab PO 02/06/24 05:38 1,000 mg ONCE ONE Administration Aspirin 81 mg 02/06/24 05:37 02/06/24 05:47 Aspirin Ec 81mg Tablet PO 02/06/24 05:38 Not Given ONCE ONE Aspirin 81 mg 02/06/24 05:46 02/06/24 05:47 Aspirin 81mg Chewable Tablet PO 02/06/24 05:47 81 mg ONCE ONE Administration Belladonna Alkaloids 60 ml 02/06/24 05:37 02/06/24 05:46 Belladonna Alkaloids 60 Ml Ml PO 02/06/24 05:38 60 ml ONCE ONE Administration Ondansetron HCl 4 mg 02/06/24 07:26 02/06/24 07:27 Ondansetron 4mg/2ml Vial IV 02/06/24 07:27 4 mg ONCE ONE Administration ORDERS Category Date Time Status CXR --portable [XR chest portable] Stat Exams 02/06/24 05:39 Completed CBC w/Auto Diff [Complete Blood Count Auto Diff] Stat Lab 02/06/24 05:30 Completed CMP [Comprehensive Metabolic Panel] Stat Lab 02/06/24 05:30 Completed D-Dimer Stat Lab 02/06/24 05:30 Completed Troponin I Q3H Lab 02/06/24 05:30 Completed Troponin I Q3H Lab 02/06/24 08:27 Completed ECG Data Tracing #1: I reviewed this ECG and interpreted as documented below: ECG initial impression date: 02/06/24 ECG initial impression time: 05:29 ECG normal with no acute: arrhythmias, ischemia, conduction abnormalities, chamber hypertrophy Normal Sinus Rhythm: Yes HEART Score History (anamnesis): Slightly suspicious ECG: Normal Age: 45-65 years Risk factors: No known risk factors Troponin: </= normal limit HEART Score: 1 Medical Decision Narrative: 63-year-old female with no significant past medical history presents with several days of worsening central chest pain radiating down the arm. History was obtained interactive discussion with patient, chart review. On arrival, patient is [afebrile, hemodynamically stable, satting appropriately, alert, oriented x4, GCS 15], moving all extremities spontaneously. Full physical exam performed and significant for no significant physical exam abnormality Differential includes but is not limited to ACS, PE, musculoskeletal chest pain, esophageal spasm, GERD, lung pathology. Patient was given 81 mg aspirin to complete full dose, and also given Tylenol and GI cocktail. For symptomatic management and correction of underlying abnormalities. Workup initiated including CBC CMP troponin EKG chest x-ray. Unable to PERC out secondary to age, D-dimer obtained. On re-evaluation, patient [remains afebrile, HD stable.] Laboratory workup independently interpreted by me and significant for D-dimer negative by years criteria, initial troponin undetectably low, other labs nonactionable.. Imaging independently interpreted by me and significant for clear lungs bilaterally without evidence of focal opacity. See radiology read for full review of final results. EKG independently interpreted by me and significant for normal sinus rhythm. CT PE was considered, but deemed unnecessary due to negative D-dimer. At 6:10 AM patient was placed in ED observation status in order to obtain serial troponins and prevent potentially unnecessary admission. At this time care was handed off to oncoming physician. <Ronald Sewell MD - Last Filed: 02/06/24 10:33> Vital Signs: 02/06/24 05:28 02/06/24 06:01 02/06/24 07:00 Temperature 98.1 F Temperature Source Oral Pulse Rate 71 Pulse Rate [Right] 76 Respiratory Rate 16 16 21 Blood Pressure 129/76 123/67 Blood Pressure [Right Arm] 139/59 L Blood Pressure Mean 93 Blood Pressure Mean [Right Arm] 85 02 Sat by Pulse Oximetry 99 96 02/06/24 07:30 02/06/24 08:00 02/06/24 08:30 Temperature Temperature Source Pulse Rate 75 69 59 L Pulse Rate [Right] Respiratory Rate 18 18 18 Blood Pressure 125/75 134/81 121/79 Blood Pressure [Right Arm] Blood Pressure Mean 88 93 89 Blood Pressure Mean [Right Arm] 02 Sat by Pulse Oximetry 94 L 96 02/06/24 09:00 02/06/24 09:25 Temperature 98.7 F Temperature Source Pulse Rate 70 75 Pulse Rate [Right] Respiratory Rate 16 15 Blood Pressure 122/75 122/75 Blood Pressure [Right Arm] Blood Pressure Mean 86 Blood Pressure Mean [Right Arm] 02 Sat by Pulse Oximetry 96 Lab Data Lab Results 02/06/24 05:30: WBC 6.6, RBC 4.85, Hgb 14.2, Hct 44.3, MCV 91.4, MCH 29.4, MCHC 32.1, RDW 13.5, Plt Count 274, MPV 7.7, Neut % (Auto) 49.1, Lymph % (Auto) 39.1, Door % (Auto) 5.0, Eos % (Auto) 5.5, Baso % (Auto) 1.2, Neut # (Auto) 3.2, Lymph # (Auto) 2.6, Door # (Auto) 0.3, Eos # (Auto) 0.4, Baso # (Auto) 0.1, D-Dimer 0.64 H, Sodium 138, Potassium 3.8, Chloride 107, Carbon Dioxide 24, Anion Gap 10.8, BUN 19 H, Creatinine 0.70, Estimated Creat Clear 66, Estimated GFR 84, Est GFR ( Amer) 102, Glucose 111 H, Calcium 9.1, Total Bilirubin 0.4, AST 35, ALT 30, Alkaline Phosphatase 73, Troponin I < 0.01, Total Protein 7.4, Albumin 4.2, Globulin 3.2, Albumin/Globulin Ratio 1.3 02/06/24 08:27: Troponin I < 0.01 Orders (Tests/Meds): ED MEDICATIONS Discontinued Medications Generic Name Dose Route Start Last Admin Trade Name Jameel PRN Reason Stop Dose Admin Acetaminophen 1,000 mg 02/06/24 05:37 02/06/24 05:46 Acetaminophen 500mg Tab PO 02/06/24 05:38 1,000 mg ONCE ONE Administration Aspirin 81 mg 02/06/24 05:37 02/06/24 05:47 Aspirin Ec 81mg Tablet PO 02/06/24 05:38 Not Given ONCE ONE Aspirin 81 mg 02/06/24 05:46 02/06/24 05:47 Aspirin 81mg Chewable Tablet PO 02/06/24 05:47 81 mg ONCE ONE Administration Belladonna Alkaloids 60 ml 02/06/24 05:37 02/06/24 05:46 Belladonna Alkaloids 60 Ml Ml PO 02/06/24 05:38 60 ml ONCE ONE Administration Ondansetron HCl 4 mg 02/06/24 07:26 02/06/24 07:27 Ondansetron 4mg/2ml Vial IV 02/06/24 07:27 4 mg ONCE ONE Administration ORDERS Category Date Time Status CXR --portable [XR chest portable] Stat Exams 02/06/24 05:39 Completed CBC w/Auto Diff [Complete Blood Count Auto Diff] Stat Lab 02/06/24 05:30 Completed CMP [Comprehensive Metabolic Panel] Stat Lab 02/06/24 05:30 Completed D-Dimer Stat Lab 02/06/24 05:30 Completed Troponin I Q3H Lab 02/06/24 05:30 Completed Troponin I Q3H Lab 02/06/24 08:27 Completed HEART Score HEART Score: 1 Medical Decision Narrative: 63-year-old female with no significant past medical history presents with several days of worsening central chest pain radiating down the arm. History was obtained interactive discussion with patient, chart review. On arrival, patient is [afebrile, hemodynamically stable, satting appropriately, alert, oriented x4, GCS 15], moving all extremities spontaneously. Full physical exam performed and significant for no significant physical exam abnormality Differential includes but is not limited to ACS, PE, musculoskeletal chest pain, esophageal spasm, GERD, lung pathology. Patient was given 81 mg aspirin to complete full dose, and also given Tylenol and GI cocktail. For symptomatic management and correction of underlying abnormalities. Workup initiated including CBC CMP troponin EKG chest x-ray. Unable to PERC out secondary to age, D-dimer obtained. On re-evaluation, patient [remains afebrile, HD stable.] Laboratory workup independently interpreted by me and significant for D-dimer negative by years criteria, initial troponin undetectably low, other labs nonactionable.. Imaging independently interpreted by me and significant for clear lungs bilaterally without evidence of focal opacity. See radiology read for full review of final results. EKG independently interpreted by me and significant for normal sinus rhythm. CT PE was considered, but deemed unnecessary due to negative D-dimer. At 6:10 AM patient was placed in ED observation status in order to obtain serial troponins and prevent potentially unnecessary admission. At this time care was handed off to oncoming physician. Ronald Sewell MD: I assumed care of this patient from the previous emergency medicine physician. Upon repeat evaluation and history obtained by myself, she continues to be mildly symptomatic but is complaining of left scapular reproducible tenderness to palpation, second troponin resulted and was undetectable. On serial evaluations patient reports improvement of symptoms. She is deemed stable for discharge at this time with return precautions given. At this time there is insufficient evidence to warrant study further ED observation or admission for alternative entities discussed in the initial differential diagnosis. Patient feels comfortable with this plan. She will follow-up with cardiology and return with any new or worsening symptoms. Procedures <Jasbir Avery MD - Last Filed: 02/06/24 23:32> Risk/Benefits of Procedure(s) Were Explained: Yes Critical Care <Jasbir Avery MD - Last Filed: 02/06/24 23:32> Critical Care Time Critical Care Time: No
[2024-02-06 05:51] LABS: Alanine Aminotransferase 30 U/L (12-78); Albumin Level 4.2 g/dl (3.5-5.0); Albumin/Globulin Ratio 1.3 (1.1-1.8); Alkaline Phosphatase 73 U/L (38-126); Anion Gap 10.8 mEq/L (5-15); Aspartate Amino Transferase 35 U/L (14-36); Bilirubin,Total 0.4 mg/dl (0.2-1.3); Blood Urea Nitrogen 19 mg/dl (7-17); Calcium 9.1 mg/dl (8.4-10.2); Carbon Dioxide 24 mmol/L (22.0-30.0); Chloride 107 mmol/L (98-107); Creatinine Clearance Estimated 66 mL/min (50-200); Estimated Glomerular Filt Rate 84 ml/min (>60); GFR (African American) 102 ML/MIN (>60); Globulin 3.2 g/dL (1.3-3.2); Glucose 111 mg/dl (74-100); Potassium 3.8 mmoL/L (3.5-5.1); Sodium 138 mmol/L (136-145); Total Protein,Serum 7.4 g/dl (6.3-8.2)
[2024-02-06 05:56] LABS: D-Dimer 0.64 ug/mL (0.0-0.5)
[2024-02-06 06:05] LABS: Troponin I < 0.01 ng/ml (0.00-0.034)
--- NOTE | 2024-02-06 07:19 | PC.NURSE ---
Rounded on patient, no needs voiced at this time.
[2024-02-06] MEDS: ONDANSETRON 4MG/2ML VIAL 4 MG IV (07:27)
--- NOTE | 2024-02-06 07:57 | PC.NURSE ---
rounded on pt, sleeping at this time
--- NOTE | 2024-02-06 08:55 | PC.NURSE ---
in room talking with patient at this time.
[2024-02-06 09:02] LABS: Troponin I < 0.01 ng/ml (0.00-0.034)
== END 2024-02-06 09:26 | disposition still patient (30) ==
PROVIDERS: Emergency Medicine; Emergency Provider Emergency Medicine; PCP Family Medicine
DX: R07.89 Other chest pain (principal)
CPT/HCPCS: 71045; 80053; 84484; 85025; 85378; 93005; 96374; 99284; J2405

== ENCOUNTER 2024-08-10 19:41 | Emergency (ER) | payer MEDICARE, SELFPAY ==
[2024-08-10 19:41] VITALS: BP 132/71; PULSE 73; RESP 22; TEMP 37.3; O2SAT 99; BMI 28.9
[2024-08-10 19:43] VITALS: BP 190/157; PULSE 86; O2SAT 98
[2024-08-10 19:45] VITALS: BP 132/71; PULSE 71; O2SAT 99
--- NOTE | 2024-08-10 19:49 | XR_ITS ---
PROCEDURE INFORMATION: Exam: XR Left Tibia and Fibula Exam date and time: 08/10/2024 7:48 PM Age: 64 years old Clinical indication: Injury or trauma; Fall; Other: Pain TECHNIQUE: Imaging protocol: Radiologic exam of the left tibia and fibula. Views: 2 views. COMPARISON: CR XR ANKLE LT MIN 3V 08/10/2024 7:48 PM FINDINGS: Bones/joints: There is a vertical oblique acute nondisplaced fracture involving the distal fibula just above the ankle joint. No additional acute fractures. Joint spaces appear preserved. Calcaneal spurs are demonstrated at the origin of the plantar fascia and the insertion of the Achilles tendon. Mild enthesopathic changes involve the superior patella. Soft tissues: No significant soft tissue edema. No subcutaneous emphysema or radiopaque foreign bodies. IMPRESSION: Acute nondisplaced fracture involving the distal fibula.
--- NOTE | 2024-08-10 19:49 | XR_ITS ---
PROCEDURE INFORMATION: Exam: XR Left Ankle Exam date and time: 08/10/2024 7:48 PM Age: 64 years old Clinical indication: Injury or trauma; Fall; Other: Pain TECHNIQUE: Imaging protocol: Radiologic exam of the left ankle. Views: 3 or more views. COMPARISON: CR XR ANKLE LT MIN 3V 08/10/2024 7:48 PM FINDINGS: Bones/joints: There is a vertical oblique acute nondisplaced fracture involving the distal fibula just above the ankle joint. Joint spaces appear preserved. Calcaneal spurs are demonstrated at the origin of the plantar fascia and the insertion of the Achilles tendon. Soft tissues: No significant soft tissue edema. No subcutaneous emphysema or radiopaque foreign bodies. IMPRESSION: Acute nondisplaced fracture involving the distal fibula.
[2024-08-10 20:00] VITALS: BP 164/147; PULSE 77; O2SAT 98
--- NOTE | 2024-08-10 20:03 | ED_ITS ---
Discharge Plan Disposition Patient Disposition: Home, Self-Care Prescriptions Prescriptions: New hydrocodone-acetaminophen 5-325 mg tablet 1 tab PO Q6H PRN (Reason: pain) 3 Days Qty: 12 0RF No Action meclizine 25 mg tablet 25 mg PO Q6HP PRN (Reason: dizziness) Qty: 30 0RF methocarbamol 500 mg tablet 500 mg PO Q8H Qty: 90 0RF Referrals Follow up/Referrals: Eulogio Orellana DO [Staff Physician] - See instructions Activity Restrictions/Add. Instructions Additional Instructions/Restrictions: You may bear weight as tolerated with your walking boot and crutches. Please follow-up with Dr. Orellana to ensure appropriate resolution. Clinical Impressions Clinical Impression: Fracture of left fibula Print Language Print Language: Setswana Discharge ED Provider: Amanda Cramer General Adult HPI General Chief complaint: Fall Stated complaint: fall Time Seen by Provider: 08/10/24 19:55 Mode of Arrival: Wheelchair Source of Information: Patient Limitations: Physical Limitations Description of Symptoms (Recalled from ER Triage Doc. by RN): 64 F presents after falling out of the back of a truck. She has an obvious injury to her left ankle, but circulation is intact. Patient is tearful and appears in severe pain. History of Present Illness HPI narrative: Patient is a 64-year-old female present today with a left ankle injury after falling out of the back of a truck. Complains of pain and swelling over the left lateral malleolus region. No injuries elsewhere. She denies any other past medical history including anticoagulation and platelets etc. Related Data Previous Rx's ?Medication ?Instructions ?Recorded meclizine 25 mg tablet 25 mg PO Q6HP PRN dizziness #30 08/29/23 tabs methocarbamol 500 mg tablet 500 mg PO Q8H #90 tabs 02/06/24 hydrocodone 5 mg-acetaminophen 325 1 tab PO Q6H PRN pain 3 days #12 08/10/24 mg tablet tabs Allergies Allergy/AdvReac Type Severity Reaction Status Date / Time meloxicam [From Mobic] Allergy Verified 08/29/23 16:59 PFSH PFS Disclaimer: The information contained in this section may have been updated after the patient was seen, as this information can be updated by other users. Surgical History History of hysterectomy History of colonoscopy Family History Other No significant family history Social History Smoking Status: Never smoker alcohol intake: never current occupational status: retired and other Travel in the last 8 weeks: None Other Medical History Have you received the Flu Vaccine for this season: No Have you received the Pneumonia Vaccine: No ROS Obtained: Yes All systems reviewed & no additional complaints except as documented Physical Exam General General appearance: alert Respiratory Respiratory exam: Present normal lung sounds bilaterally Cardiovascular Cardiovascular exam: Present regular rate and normal rhythm Extremities Exam Extremities exam: Present other (Left lateral malleolus tenderness and swelling neurovascular intact no significant tenderness with compression of proximal tib- fib location) Neurological Exam Neurological exam: Present alert and oriented X3 Medical Decision Making Medical Records Screening: Per USPSTF and CDC recommendations, given the prevalence of disease in our region, it is our hospital?s policy to screen for HIV and viral Hepatitis for all patients aged 18 and over and those with ongoing risk factors. Tu Inquiry Pt receiving controlled substance: No Vital Signs: 08/10/24 19:41 08/10/24 19:43 08/10/24 19:45 Temperature 99.1 F Temperature Source Oral Pulse Rate 86 71 Pulse Rate [Left] 73 Respiratory Rate 22 Blood Pressure 190/157 H 132/71 Blood Pressure [Right Arm] 132/71 Blood Pressure Mean [Right Arm] 91 Blood Pressure Source [Right Arm] Automatic Cuff Blood Pressure Position [Right Arm] Sitting 02 Sat by Pulse Oximetry 99 98 99 Oxygen Delivery Method Room Air Room Air Room Air 08/10/24 20:00 08/10/24 20:32 Temperature Temperature Source Pulse Rate 77 66 Pulse Rate [Left] Respiratory Rate Blood Pressure 164/147 H 132/72 Blood Pressure [Right Arm] Blood Pressure Mean [Right Arm] Blood Pressure Source [Right Arm] Blood Pressure Position [Right Arm] 02 Sat by Pulse Oximetry 98 99 Oxygen Delivery Method Room Air Room Air Orders (Tests/Meds): ED MEDICATIONS Discontinued Medications Generic Name Dose Route Start Last Admin Trade Name Freq PRN Reason Stop Dose Admin Acetaminophen 1,000 mg 08/10/24 20:53 08/10/24 20:57 Acetaminophen 1,000mg/100ml Vial IV 08/10/24 20:54 1,000 mg ONCE ONE Administration Morphine Sulfate 4 mg 08/10/24 20:01 08/10/24 20:10 Morphine 4mg/Ml Syringe IV 08/10/24 20:02 4 mg ONCE ONE Administration Ondansetron HCl 4 mg 08/10/24 20:01 08/10/24 20:10 Ondansetron 4mg/2ml Vial IV 08/10/24 20:02 4 mg ONCE ONE Administration ORDERS Category Date Time Status Fibula/tibia XR left 2 views [XR tibia fibula LT 2V] Exams 08/10/24 19:49 Completed Stat XR ankle LT min 3V Stat Exams 08/10/24 19:49 Completed Medical Decision Narrative: 64-year-old above history and physical differential includes fracture dislocation etc. X-rays performed to person interpreted which show distal fibular minimally displaced fracture. No fracture or dislocation elsewhere. This is a nonweightbearing bone she was placed in a boot and given crutches and advised to bear weight as tolerated will follow-up outpatient with Dr. Orellana to ensure resolution. She is in severe pain and for that reason I am giving her IV pain medication and IV nausea medicine and will reassess once her pain is adequately controlled. Reassessment 939 after IV morphine and IV Tylenol patient's had significant improvement in pain control standpoint. She has been given a walking boot and crutches advised to bear weight as tolerated which she will follow-up outpatient with Dr. Orellana to ensure appropriate resolution of her pain. Critical Care Critical Care Time Critical Care Time: No
[2024-08-10] MEDS: ONDANSETRON 4MG/2ML VIAL 4 MG IV (20:10)
[2024-08-10] MEDS: MORPHINE 4MG/ML SYRINGE 4 MG IV (20:10)
[2024-08-10 20:32] VITALS: BP 132/72; PULSE 66; O2SAT 99
[2024-08-10] MEDS: ACETAMINOPHEN 1,000MG/100ML VIAL 1000 MG IV (20:57)
[2024-08-10 21:47] VITALS: BP 124/91; PULSE 58; RESP 18; TEMP 36.8; O2SAT 96
== END 2024-08-10 22:01 | disposition home or self-care (01) ==
PROVIDERS: Emergency Provider Student in an Organized Health Care Education/Training Program; PCP Family Medicine
DX: S82.832A Other fracture of upper and lower end of left fibula, initial encounter for closed fracture (principal); W19.XXXA Unspecified fall, initial encounter
CPT/HCPCS: 73590; 73610; 96374; 96375; 99284; J0131; J2270; J2405

== ENCOUNTER 2024-08-24 09:58 | Outpatient (CLI) | payer MEDICARE, SELFPAY ==
--- NOTE | 2024-08-24 10:09 | XR_ITS ---
PROCEDURE INFORMATION: Exam: XR Left Ankle Exam date and time: 08/24/2024 10:18 AM Age: 64 years old Clinical indication: Injury or trauma; Fall; Blunt trauma; Ankle; Left; Additional info: FX follow up TECHNIQUE: Imaging protocol: Radiologic exam of the left ankle. Views: 3 or more views. COMPARISON: CR XR ANKLE LT MIN 3V 08/24/2024 10:18 AM FINDINGS: Bones/joints: Fracture deformity of the distal fibula. Callus formation at the fracture Soft tissues: Normal. IMPRESSION: Fracture deformity of the distal fibula. Callus formation at the fracture site. Fracture line still visualized
== END 2024-08-24 23:59 | disposition home or self-care (01) ==
LOC: RAD 10:00
PROVIDERS: PCP Family Medicine; Visit Provider Orthopaedic Surgery
DX: M25.572 Pain in left ankle and joints of left foot (principal); S82.899A Other fracture of unspecified lower leg, initial encounter for closed fracture
CPT/HCPCS: 73610

== ENCOUNTER 2024-09-19 09:31 | Outpatient (CLI) | payer MEDICARE, SELFPAY ==
--- NOTE | 2024-09-19 09:36 | XR_ITS ---
FINAL REPORT CLINICAL HISTORY: fx f/u left ankle COMPARISON: 08/24/2020 FINDINGS: LEFT ANKLE: Three views of the left ankle were obtained. There is a subacute fracture of the distal fibular metaphysis. There is a small amount of callus formation at the fracture site. The joint spaces and mortise are intact. Small calcaneal spurs are noted. There is no soft tissue abnormality. IMPRESSION: Subacute distal fibula fracture as above with callus formation. Reviewed, Interpreted and Dictated by Jam Narayanan III, MD Transcribed by Haley Nunez Authenticated and [facility]
== END 2024-09-19 23:59 | disposition home or self-care (01) ==
LOC: RAD 09:32
PROVIDERS: PCP Family Medicine; Visit Provider Physician Assistant Surgical
DX: S82.402A Unspecified fracture of shaft of left fibula, initial encounter for closed fracture (principal)
CPT/HCPCS: 73610

== ENCOUNTER 2024-10-17 08:46 | Outpatient (CLI) | payer MEDICARE, SELFPAY ==
--- NOTE | 2024-10-17 08:50 | XR_ITS ---
FINAL REPORT CLINICAL HISTORY: left tib fx COMPARISON: 08/10/2024 FINDINGS: Left tibia fibula Two views were obtained. There is a subacute oblique fracture of the distal fibular metaphysis. IMPRESSION: Fracture as above. Reviewed, Interpreted and Dictated by Jam Narayanan III, MD Transcribed by Brooklyn Young Authenticated and . [facility]
== END 2024-10-17 23:59 | disposition home or self-care (01) ==
LOC: RAD 08:48
PROVIDERS: PCP Family Medicine; Visit Provider Physician Assistant
DX: S82.402A Unspecified fracture of shaft of left fibula, initial encounter for closed fracture (principal)
CPT/HCPCS: 73590

== ENCOUNTER 2024-12-12 12:08 | Outpatient (CLI) | payer MEDICARE, OTHER, SELFPAY ==
--- NOTE | 2024-12-12 12:16 | XR_ITS ---
FINAL REPORT CLINICAL HISTORY: left hip pain COMPARISON: None FINDINGS: LEFT HIP: Two views of the left hip demonstrate no acute fracture or dislocation. The joint spaces appear normal. The visualized bony structures are well aligned. No soft tissue abnormality is seen. IMPRESSION: No acute bony abnormality. Reviewed, Interpreted and Dictated by Link Carrion MD Transcribed by Zelda Kent Authenticated and [facility]
--- NOTE | 2024-12-12 12:16 | XR_ITS ---
FINAL REPORT CLINICAL HISTORY: left tib fib pain COMPARISON: None FINDINGS: LEFT TIBIA FIBULA: There is a healing oblique fracture of the distal fibular metaphysis. There is no acute fracture or dislocation. The joint spaces are intact. Soft tissue swelling is noted overlying the lateral malleolus. IMPRESSION: Healing oblique fracture of the distal fibula as described. Mild soft tissue swelling is noted. Reviewed, Interpreted and Dictated by Link Carrion MD Transcribed by Zelda Kent Authenticated and [facility]
== END 2024-12-12 23:59 | disposition home or self-care (01) ==
LOC: RAD 12:13
PROVIDERS: PCP Family Medicine; Visit Provider Physician Assistant
DX: M25.552 Pain in left hip (principal); S82.402A Unspecified fracture of shaft of left fibula, initial encounter for closed fracture
CPT/HCPCS: 73502; 73590

== ENCOUNTER 2025-01-02 09:00 | Outpatient (RCR) | payer MEDICARE, OTHER, SELFPAY ==
--- NOTE | 2024-12-19 10:30 | HMH.PTOPEV ---
PT Outpatient Evaluation Rehab PT Outpatient Evaluation Start: 12/19/24 08:46 Freq: Status: Active Protocol: Document 12/19/24 08:46 MAYANK (Rec: 12/19/24 10:30 MAYANK [id number]) E-signed By Jasmina Sequeira, PT Outpatient Therapy Subjective History Subjective History Pt is a 64 y/o female who reports onset of L lateral leg pain ~4 weeks ago starting at her posterior hip radiating down the lateral aspect of the leg to her ankle. Pt also reports intermittent pain on the top of her L foot. Pt describes symptoms as a burning sensation, denies numbness/tingling or b/b dysfunction. Pt reports pain is aggravated by squatting, prolonged standing, prolonged walking, stair climbing, laying on either side, and standing up from a bent forward position. Pt reports pain is worse at night time and wakes her up, states she is only sleeping 3-4 hours at a time. Pt reports she fell ~4 months ago resulting in a distal fibular fracture. She states she wore a boot for 12 weeks and was recently removed from it 1 month ago. Pt had a tibia/fibula radiograph on 12/12/24 with findings of There is a healing oblique fracture of the distal fibular metaphysis. There is no acute fracture or dislocation. The joint spaces are intact. Soft tissue swelling is noted overlying the lateral malleolus. Pt denies further comorbidities to report and states she is very active working out daily prior to her injury. New diagnosis of cancer in past 12 No months? Chief Complaint Pain,Swelling Symptom Type Ache,Burning Symptoms Relieved By Rest/Positioning,OTC Meds Symptoms Aggravated By Standing,Bending/Stooping, Physical Activity,Walking Current Functional Limitations Housework,Sleeping,Standing, Squatting,Walking,Stairs Symptom Description Intermittent Level of pain today (0-10) 5 Pain scale - at its best (0-10) 0 Pain scale - at its worst (0-10) 10 Lumbopelvic Eval Accessory Movement L-spine Vertebrae Accessory Movements [place] [employer] [place] that Elicit Symptoms L4 left L5 left Range of Motion Lumbar Spine Active Flexion Range of 90 Motion (degrees) Lumbar Spine Active Extension Range of 15 Motion (degrees) Left Lumbar Spine Lateral Flexion Active 20 Range of Motion (degrees) Right Lumbar Spine Lateral Flexion 20 Active Range of Motion (degrees) Hip/Knee Eval Assistive Device Assistive Devices None / NA Palpation Tenderness left Knee Palpation Overall Comment 2-3/4 TTP of piriformis, lateral thigh & lateral malleoli. No TTP of ITB/TF Hip Palpation Findings Tenderness MMT Hip Flexion Strength Grade 4 Good Hip Abduction Strength Grade 4 Good Hip Adduction Strength Grade 4 Good Hip Extension Strength Grade 4 Good Knee Extension Strength Grade 5 Normal Knee Flexion Strength Grade 5 Normal ROM Hip Flexion w/Knee Flexed Active Range 105 of Motion (degrees) Hip External Rotation Active Range of 45 Motion (degrees) Hip Internal Rotation Active Range of 45 p! Motion (degrees) Sensation Comment equal and intact to light touch sensation bilaterally Special Tests Hip Jessica Test Negative Left Hip Piriformis Test Positive Left Sciatic Nerve Tension Test Positive Left Hip Scouring (Quadrant) Test Negative Left Ankle/Foot Eval ROM left Ankle/Foot Dorsiflexion w/Knee Extended 15 Active Range Motion (degrees) Ankle/Foot Plantar Flexion Active Range 35 of Motion (degrees) Ankle/Foot Eversion Active Range of 12 Motion (degrees) Ankle/Foot Inversion Active Range of 20 Motion (degrees) MMT Ankle Dorsiflexion Strength Grade 5 Normal Ankle Plantarflexion Strength Grade 4 Good Foot Eversion Strength Grade 5 Normal Foot Inversion Strength Grade 5 Normal Lower Extremity Functional Index Activities Today, do you or would you have any difficulty at all with: a.Any of your usual work, housework or Moderate difficulty school activities b. Your usual hobbies, recreational or Extreme difficulty or unable sporting activities to perform activity c. Getting into or out of the bath Quite a bit of difficulty d. Walking between rooms Moderate difficulty e. Putting on your shoes or socks Moderate difficulty f. Squatting Quite a bit of difficulty g. Lifting an object, like a bag of Moderate difficulty groceries from the floor h. Performing light activities around Moderate difficulty your home i. Performing heavy activities around Extreme difficulty or unable your home to perform activity j. Getting into or out of a car Moderate difficulty k. Walking 2 blocks Extreme difficulty or unable to perform activity l. Walking a mile Extreme difficulty or unable to perform activity m. Going up or down 10 stairs (about 1 Extreme difficulty or unable flight of stairs) to perform activity n. Standing for 1 hour Extreme difficulty or unable to perform activity o. Sitting for 1 hour Quite a bit of difficulty p. Running on even ground Extreme difficulty or unable to perform activity q. Running on uneven ground Extreme difficulty or unable to perform activity r. Making sharp turns while running fast Extreme difficulty or unable to perform activity s. Hopping Extreme difficulty or unable to perform activity t. Rolling over in bed Extreme difficulty or unable to perform activity LEFI Score Lower Extremity Functional Index Score 15 Outpatient Therapy Assessment Impairments Problems/Impairmments Palpation Tenderness,Impaired Range of Motion,Impaired Strength,Impaired Walking, Impaired Standing,Impaired Stair Climbing,Impaired Squatting,Impaired Bending, Impaired Recreational Activities,Subjective C/O Pain ,Impaired Self Care/Self Management Prognosis Rehab Potential Good Clinical Impression Consistent with Diagnosis Yes Consistent with also LBP with radiating pain Additional details: comparable sign with mobilization of L4-5 motion segment Short Term Goals Number of Weeks 3 Improve LEFI Score Yes: Improve score to at least 30/80 to improve overall QOL Decrease Subjective C/O Pain Yes: Improve pain at worst to 7/10 to improve overall QOL Improve Self Care/Self Management Yes Patient to be Ind w/ HEP Yes [facility] Goals Number of Weeks 6 Decreased Palpation Tenderness Yes: 0-1/4 TTP of L4-5, gluteal mm and lateral thigh Increase Strength Yes: Improve LE MMT to 4+-5/5 grossly to assist with function Improve Ability to Climb Stairs Yes: 1 flight reciprocally with p! <5/10 to assist with community navigation Return to Recreational Activities Yes: perform prior exercise routine w/ p! <5/10 to assist w return to PLOF Improve LEFI Score Yes: Improve score to at least 45-50/80 to improve overall QOL Decrease Subjective C/O Pain Yes: Improve pain at worst to 5/10 to improve overall QOL Outpatient Therapy Plan of Care Treatment Plan May Include Therapeutic Exercise Including Home Yes Exercise Program Manual Therapy Techniques Yes Neuromuscular Re-education Yes Therapeutic Activities to Return to Yes Previous Functional/Work Level Gait Training Yes ADL/Self Care Education Yes Mechanical Traction Yes Dry Needling Yes Thermal Modalities Yes Electrical Stimulation Yes Ultrasound/Phonophoresis Yes Iontophoresis Yes Vasopneumatic Compression Pump Yes Massage Yes Group Therapy for Medicare Yes Eval/Re-Eval Yes Frequency Times per week 2 Duration Number of Weeks 4-6 Addendums This patient is a candidate for social No or vocational rehab? Patient/Guardian verbally acknowledges Yes understanding of treatment program and consents to further treatment? Patient/Guardian verbally acknowledges Yes understanding of diagnosis, prognosis and goals for treatment? Eval Complexity PT Charges 10136 - Low Complexity Shoulder/Elbow Eval Shoulder Objective Measurements Elbow Objective Measurements PHYSICIAN CERTIFICATION: I certify the specified therapy services for Amanda Colunga are required, authorized, and reviewed every 30 days.
== END 2025-01-02 23:59 | disposition home or self-care (01) ==
LOC: PT 09:00
PROVIDERS: Visit Provider Physician Assistant
DX: M76.32 Iliotibial band syndrome, left leg (principal)
CPT/HCPCS: 97014; 97110; 97163; G0283

== ENCOUNTER 2025-02-05 16:00 | Outpatient (RCR) | payer MEDICARE, OTHER, SELFPAY ==
--- NOTE | 2025-01-16 12:04 | HMH.RHREAS ---
Rehab Reassessment Rehab OP Re-assessment Start: 01/16/25 11:12 Freq: Status: Active Protocol: Document 01/16/25 11:16 MAYANK (Rec: 01/16/25 12:00 MAYANK [id number]) E-signed By Jasmina Sequeira PT Lower Extremity Functional Index Activities Today, do you or would you have any difficulty at all with: a.Any of your usual work, housework or Quite a bit of difficulty school activities b. Your usual hobbies, recreational or Extreme difficulty or unable sporting activities to perform activity c. Getting into or out of the bath Moderate difficulty d. Walking between rooms Moderate difficulty e. Putting on your shoes or socks A little bit of difficulty f. Squatting Extreme difficulty or unable to perform activity g. Lifting an object, like a bag of Moderate difficulty groceries from the floor h. Performing light activities around A little bit of difficulty your home i. Performing heavy activities around Quite a bit of difficulty your home j. Getting into or out of a car Moderate difficulty k. Walking 2 blocks Quite a bit of difficulty l. Walking a mile Extreme difficulty or unable to perform activity m. Going up or down 10 stairs (about 1 Quite a bit of difficulty flight of stairs) n. Standing for 1 hour Quite a bit of difficulty o. Sitting for 1 hour Quite a bit of difficulty p. Running on even ground Quite a bit of difficulty q. Running on uneven ground Quite a bit of difficulty r. Making sharp turns while running fast Extreme difficulty or unable to perform activity s. Hopping Extreme difficulty or unable to perform activity t. Rolling over in bed Quite a bit of difficulty LEFI Score Lower Extremity Functional Index Score 23 Rehab Re-assessment Subjective Subjective Pt reports she feels 40% improved since starting PT. Pt reports she missed 2 weeks of PT due to family sickness. Pt reports continued burning pain that radiates from the left lateral ankle to the left posterior hip. Pt reports pain mostly occurs at night time when she rolls onto the left hip. Pt reports pain at worst as 6-7/10 on VAS. Pt reports pain is also aggravated by climbing 15 steps in her home if she does it >2x/day. Pt reports she has also started experiencing a brief shocking sensation from the lateral leg to the hip lasting 1-2 minutes that occurs when she is standing and walking. Pt reports compliance with HEP which she states is helping overall. Objective Objective Notes + Slump test (L) Palpation: 11/11 TTP of L4-5, piriformis, glute med/min L hip flexion AROM: 105 L hip MMT: 02/10 grossly (p! with resisted hip extension) Assessment Assessment Notes Pt has attended 5 PT treatment sessions consisting of aerobic exercise, lumbar/hip mobility, LE stretching, LE/ core strengthening, neural glides, modalities and HEP with good tolerance. Pt demonstrated improved LEFS score, tenderness to palpation and subjective report of pain this date compared to the initial evaluation. Pt missed 2 weeks of PT delaying progress thus far and continues to report L posterolateral burning pain from the hip to the ankle that is worse at night time and aggravated by lying on her side and repetitive stair climbing. Overall, the pt would continue to benefit from skilled PT to further improve subjective report of pain/ paresthesia, LE/core strength, and functional activity tolerance to improve overall QOL. Patient goals met ST/4 Goals Not Met LEFS score, LTG Revised Goals n/a Plan Plan Continue POC Frequency of Therapy 2x/week Duration of therapy 4 more weeks Time and Billing Re-Eval Time 12 Re-Eval Billing Units 0 Charge for PT reassessment? No Charge for OT reassessment? No PHYSICIAN CERTIFICATION: I certify the specified therapy services for Amanda Colunga are required, authorized, and reviewed every 30 days.
== END 2025-02-05 23:59 | disposition home or self-care (01) ==
LOC: PT 16:00
PROVIDERS: Visit Provider Family Medicine
DX: M76.32 Iliotibial band syndrome, left leg (principal)
CPT/HCPCS: 97014; 97110; G0283

== ENCOUNTER 2025-02-16 13:59 | Outpatient (RCR) | payer MEDICARE, OTHER, SELFPAY | END 2025-02-16 23:59 | disposition home or self-care (01) | LOC: PT 13:59 | PROVIDERS: PCP Family Medicine; Visit Provider Family Medicine | DX: R42 Dizziness and giddiness (principal) | CPT/HCPCS: 95992; 97110; 97163 ==

== ENCOUNTER 2025-02-27 09:00 | Outpatient (RCR) | payer MEDICARE, OTHER, SELFPAY ==
--- NOTE | 2025-02-16 17:12 | HMH.RHREAS ---
Rehab Reassessment Rehab OP Re-assessment Start: 02/09/25 16:21 Freq: Status: Active Protocol: Document 02/16/25 16:46 CORDELL (Rec: 02/16/25 17:12 CORDELL [id number]) E-signed By Abraham Farmer PT Lower Extremity Functional Index Activities Today, do you or would you have any difficulty at all with: a.Any of your usual work, housework or Moderate difficulty school activities b. Your usual hobbies, recreational or Quite a bit of difficulty sporting activities c. Getting into or out of the bath A little bit of difficulty d. Walking between rooms A little bit of difficulty e. Putting on your shoes or socks Moderate difficulty f. Squatting Extreme difficulty or unable to perform activity g. Lifting an object, like a bag of Moderate difficulty groceries from the floor h. Performing light activities around Moderate difficulty your home i. Performing heavy activities around Extreme difficulty or unable your home to perform activity j. Getting into or out of a car Moderate difficulty k. Walking 2 blocks Quite a bit of difficulty l. Walking a mile Quite a bit of difficulty m. Going up or down 10 stairs (about 1 Quite a bit of difficulty flight of stairs) n. Standing for 1 hour Quite a bit of difficulty o. Sitting for 1 hour Quite a bit of difficulty p. Running on even ground Quite a bit of difficulty q. Running on uneven ground Quite a bit of difficulty r. Making sharp turns while running fast Quite a bit of difficulty s. Hopping Quite a bit of difficulty t. Rolling over in bed Quite a bit of difficulty LEFI Score Lower Extremity Functional Index Score 27 Rehab Re-assessment Subjective Subjective Pt reports that overall, she would estimate that she is 50% improved. She reports there are certain aspects that have improved mightily, such as rolling over in bed. She reports that she will occasionally get a lightning bolt of pain that goes down her leg and into her left knee . She also reports that being on her feet seems to be what bothers her the most. She reports that she attempted walking on the treadmill at her gym, which aggravated her symptoms. Reports that she would like to continue with PT for at least a few more weeks before she tries to maintain her exercises on her own. She describes her pain as a 5/10 maximum throughout today's treatment session. Objective Objective Notes + Slump test (L) Palpation: 11/11 TTP of L4-5, piriformis, glute med/min L hip flexion AROM: 110 L hip MMT: 4+/5 grossly (no pain with MMT) Assessment Assessment Notes Pt has demonstrated modest improvements from prior reassessment note. Pt has demonstrated good HEP compliance. She continues to describe radiating pain into her left LE that persists with standing activities. The pt demonstrated modest improvements in her LEFS score but has not made her stated goal, presently. The pt would continue to benefit from skilled PT to address her LE pain, improve her LE strength and continue to improve her standing tolerance. Patient goals met ST/4 LT/6 Goals Not Met Stairs, LEFS score Plan Plan Continue as per initial POC. Frequency of Therapy 1-2/week Duration of therapy 4 weeks Time and Billing Re-Eval Time 8 Re-Eval Billing Units 0 Charge for PT reassessment? No PHYSICIAN CERTIFICATION: I certify the specified therapy services for Amanda Colunga are required, authorized, and reviewed every 30 days.
== END 2025-02-27 23:59 | disposition home or self-care (01) ==
LOC: PT 09:00
PROVIDERS: Visit Provider Physician Assistant
DX: M76.32 Iliotibial band syndrome, left leg (principal)
CPT/HCPCS: 97014; 97110; 97530; G0283

== ENCOUNTER 2025-03-11 21:18 | Emergency (ER) | payer MEDICARE, OTHER, SELFPAY ==
--- OUTSIDE RECORDS SUMMARY | 2025-03-11 21:26 | XMS_ITS | Data Portability ---
Author Organization [facility] - [place] [facility] [place] [facility] ADMIN Address [address] [place] [id number] Care Team Providers Care Quality Eng Name Role Phone WARD LLOYD Primary Care Provider [phone] Assessment No assessment recorded. Plan of Treatment Reminders Order Date Submit Date Provider Last Modified By Organization Details Last Modified Time Details Appointments None recorded. Lab None recorded. Referral vestibular therapy referral - Please eval and treat [address] - Physical Therapy, [address] [facility], [place], [address], 4 11:03:06 vascular surgeon referral 2023 024 [email or web address] 3 [facility], [address] [facility], [address], [place], [address], 4 13:42:18 otolaryngol ogist referral 2023 024 KEV Knapp, [address] [facility], [place], [address], 4 14:33:24 Procedures None recorded. Surgeries None recorded. Imaging None recorded. Medication Orders fluticasone propionate 50 mcg/actuati on nasal spray,suspe nsion 2023 024 [facility], [address] [place], [address], 4 11:36:11 ibuprofen 800 mg tablet 2023 024 [facility], [address] [place], [address], 4 11:36:09 hydrocodone 7.5 mg-acetamin ophen 325 mg tablet 2023 024 [facility], [address] [place], [address], 4 11:36:16 doxepin 10 mg capsule 2023 024 [email or web address] [facility], [address] [place], [address], 4 09:48:04 benzonatate 200 mg capsule 2023 024 [email or web address] [facility], [address] [place] [address], [address], 5 13:24:05 meclizine 25 mg chewable tablet 2023 024 [facility], [address] [place], [address], 4 11:36:10 Valium 2 mg tablet 2023 024 [email or web address] [facility] [address], [address] [place] [address], [address], 4 13:25:44 Valium 2 mg tablet 2022 023 [email or web address] 5 [facility] [address], [address] [place] [address], [address], 4 13:25:44 Patient TargetsNo targets recorded. Patient Instructions Encounter Date Encounter Id Patient Instructions Last Modified By Organization Details Last Modified Time 08/31/2023 [id number] sudheer maneuver a t home for vertigo: exercises [email or web address] Not available 08/31/2023 14:20:38 06/30/2024 [id number] Total time spent by C[employer]ER reviewing patient's chart, face to face with patient, counseling, answering all questions, concerns and documenting the encounter in the patient's EMR: 1 hour [email or web address] Not available 06/30/2024 10:41:10 Reason for Referral Technology Professional Referral fo r Vertigo Referring Physician: Ward Lloyd [facility], Encounter Date: 06/23/2024 Vascular Surgeon Referral fo r Varicose veins of lower extremity Referring Physician: Ward Lloyd [facility], Encounter Date: 06/23/2024 Vestibular Therapy Referral for Benign paroxysmal positional vertigo nystagmus Please eval and treat Referring Physician: Ariadne Case, Otolaryngology, Encounter Date: 06/30/2024 Results Created Date Observation Date Name Description Value Unit Range Abnormal Flag Note LastModifiedBy Organization Detail LastModifiedTime 06/30/20 24 04/09/2023 MRI, shoul kati, w/o contr ast No observ ation record ed. BARCODE Not Available 2023 10:47:15 07/06/20 24 07/06/2024 audio gram No observ ation record ed. BARCODE Not Available 2023 09:19:12 12/12/19 25 12/12/2024 XR, hip + pelvi s, unila teral No observ ation record ed. [email or web address] [facility] [address], [place], [address], 12/13/2024 09:18:36 12/12/19 25 12/12/2024 XR, tibia + fibul a No observ ation record ed. [email or web address] [facility] [address], [place], [address], 12/13/2024 09:18:16 Result Notes None recorded. Problems Name Problem SNOMED Code Status Onset Date Resolution Date Notes Provider Name and Address Organization Details Recorded Time Sensorineural hearing loss 81626726 Active 2023 AGATA KEENAN, AUD [address], [place], [address] , [place] - [facility] - [place] 09:05:12 Problem Notes None recorded. Procedures Surgical History Date Name Laterality Status Provider Name and Address Organization Details Recorded Time 06/30/20 95770: Canalith Re-positioning completed ARIADNE CASE, CHRISTA [address] [facility], [place], [address], [place] [facility] - [place] 06/30/2024 11:02:55 07/08/20 Most Recent Mammogram completed Evelia [place] - [facility] & [place] 12/14/2023 08:23:04 Cholecystectomy completed Karis Cabach [place] - [facility] & [place] 07/08/2023 09:06:31 Total Hysterectomy completed Melind a [place] - [facility] & [place] 06/07/2024 10:24:38 vaginal delivery of fetus completed Evelia [place] - [facility] & [place] 06/07/2024 10:23:54 Imaging Results Imaging Date Name Status LastModified by Organiz ation Details LastModified Time 04/09/2023 MRI, shoulder, w/o contrast completed BARCODE Information not available 06/30/2024 10:47:15 07/06/2024 audiogram completed BARCODE Information no t available 07/06/2024 09:19:12 12/12/2024 XR, hip + pelvis, unilateral completed [email or web address] [facility] [address], [place], [address], 12/13/2024 09:18:36 12/12/2024 XR, tibia + fibula completed [email or web address] [facility] [address], [place], [address], 12/13/2024 09:18:16 Procedure Notes None recorded. Medical Equipment None Reported. Allergies Allergen ID Allergen Name Allergen Category Reaction Reaction Severity Criticality Documentation Date Start Date Code Code System Note Provider Name and Address Organization Details Recorded Time 56863 Mobic medicatio n swelling Not available high 06/30/2023 08385 9 RxNorm Evelia [facility], [place] - [facility] - [place] 4 08:20:29 Medications Name Sig Start Date Stop Date Status Note LastModified by Organization Details LastModified Time amoxicillin 500 mg capsule TAKE 1 CAPSULE BY MOUTH THREE TIMES DAILY UNTIL GONE 01/25 completed Not Available Not Available Not Available methocarbam ol 500 mg tablet TAKE 1 TABLET BY MOUTH EVERY 8 HOURS 06/23 completed Not Available Not Available Not Available doxycycline hyclate 100 mg capsule TAKE 1 CAPSULE BY MOUTH TWICE DAILY FOR 10 DAYS 07/08 completed Not Available Not Available Not Available triazolam 0.25 mg tablet TAKE 1 TABLET BY MOUTH AT BEDTIME THEN 1 TABLET 1 HOUR PRIOR TO DENTAL APPOINTME NT, THEN BRING THE THIRD TABLET WITH YOU. DO NOT DRIVE active Not Available Not Available No t Available ibuprofen 800 mg tablet TAKE 1 TABLET BY MOUTH THREE TIMES DAILY active Not Available Not Available No t Available benzonatate 200 mg capsule TAKE 1 CAPSULE BY MOUTH THREE TIMES DAILY FOR 7 DAYS active Not Available Not Available No t Available hydrocodone 5 mg-acetamin ophen 325 mg tablet TAKE 1 TABLET BY MOUTH EVERY 6 HOURS NEEDED FOR PAIN FOR 3 DAYS active Not Available Not Available No t Available ondansetron HCl 4 mg tablet TAKE 1 TABLET BY MOUTH EVERY 6 HOURS NEEDED FOR NAUSEA AND VOMITING active Not Available Not Available No t Available prednisone 20 mg tablet TAKE 3 TABLETS BY MOUTH ONCE DAILY FOR 7 DAYS THEN 2 ONCE DAILY FOR 7 DAYS THEN 1 ONCE DAILY FOR 7 DAYS THEN 1/2 (ONE-HALF ) ONCE DAILY FOR 7 DAYS 06/23 completed Not Available Not Available Not Available penicillin V potassium 500 mg tablet TAKE 1 TABLET BY MOUTH 4 TIMES DAILY FOR 7 DAYS 06/23 completed Not Available Not Available Not Available metronidazo le 500 mg tablet TAKE 1 TABLET BY MOUTH THREE TIMES DAILY FOR 7 DAYS 06/23 completed Not Available Not Available Not Available doxepin 10 mg capsule TAKE 1 CAPSULE BY MOUTH ONCE DAILY AT BEDTIME 06/30 completed Not Available Not Available Not Available meclizine 25 mg tablet CHEW AND SWALLOW 1 TABLET DAILY NEEDED FOR DIZZINESS 06/23 completed Not Available Not Available Not Available diazepam 2 mg tablet TAKE 1 TABLET BY MOUTH THREE TIMES DAILY NEEDED FOR 4 DAYS 2024 active Not Available Not Available Not Avai lable hydrocodone 7.5 mg-acetamin ophen 325 mg tablet TAKE 1 TABLET BY MOUTH EVERY 6 HOURS NEEDED FOR PAIN active Not Available Not Available No t Available cephalexin 500 mg capsule 07/08 completed Not Available Not Available Not Available lidocaine HCl 2 % mucosal solution APPLY 2 ML/THIN FILM TO AFFECTED AREA EVERY 4 HOURS NEEDED FOR PAIN active Not Available Not Available No t Available diclofenac sodium 75 mg tablet,yasmani yed release TAKE 1 TABLET BY MOUTH TWICE DAILY 07/08 completed Not Available Not Available Not Available estradiol 0.01% (0.1 mg/gram) vaginal cream INSERT 1 GRAM VAGINALLY NIGHTLY AT BEDTIME FOR 2 WEEKS. THEN TWICE WEEKLY THEREAFTE R active Not Available Not Available No t Available methylpredn isolone 4 mg tablets in a dose pack TAKE BY MOUTH DIRECTED ON INSIDE OF PACKAGE 01/25 completed Not Available Not Available Not Available ondansetron 4 mg disintegrat ing tablet DISSOLVE 1 TABLET IN MOUTH EVERY 8 HOURS NEEDED FOR NAUSEA AND FOR VOMITING active Not Available Not Available No t Available fluticasone propionate 50 mcg/actuati on nasal spray,suspe nsion Use 1 spray(s) in each nostril once daily 2024 active Not Available Not Available Not Avai lable amoxicillin 875 mg-potassiu m clavulanate 125 mg tablet TAKE 1 TABLET BY MOUTH EVERY 12 HOURS FOR 7 DAYS 07/08 completed Not Available Not Available Not Available meclizine 25 mg chewable tablet CHEW AND SWALLOW 1 TABLET NEEDED FOR DIZZINESS active Not Available Not Available No t Available Allergy Relief (cetirizine ) 10 mg tablet Take 1 tablet by mouth once daily 2023 active Not Available Not Available Not Avai lable Vitals Date Recorded Body height Body mass index (BMI) Body weight Body temperature Oxygen saturation Oxygen saturation in Arterial blood by Pulse oximetry Heart rate Systolic blood pressure Diastolic blood pressure Provider Name and Address Organization Details Last Updated DateTime 3 157.48 cm 28.5 kg/m2 32082.4 1 g 97.8 [degF] 99 % 99 % 90 /min 140 mm[Hg] 82 mm[Hg] Karis Fuentes [place] - [place] [facility] & [place] 3 14:05:11 Date Recorded Body height Body mass index (BMI) Body weight Body temperature Oxygen saturation Oxygen saturation in Arterial blood by Pulse oximetry Heart rate Systolic blood pressure Diastolic blood pressure Provider Name and Address Organization Details Last Updated DateTime 4 157.48 cm 29.1 kg/m2 84510.1 9 g 98.3 [degF] 98 % 98 % 83 /min 150 mm[Hg] 84 mm[Hg] Karis [facility] [facility] & [place] 4 11:20:57 Date Recorded Body height Body mass index (BMI) Body weight Body temperature Oxygen saturation Oxygen saturation in Arterial blood by Pulse oximetry Heart rate Systolic blood pressure Diastolic blood pressure Provider Name and Address Organization Details Last Updated DateTime 4 157.48 cm 28.9 kg/m2 56943.5 9 g 97.7 [degF] 96 % 96 % 81 /min 144 mm[Hg] 80 mm[Hg] Karis [facility] & [place] 4 13:22:01 Date Recorded Body height Body mass index (BMI) Body weight Body temperature Oxygen saturation Oxygen saturation in Arterial blood by Pulse oximetry Heart rate Systolic blood pressure Diastolic blood pressure Provider Name and Address Organization Details Last Updated DateTime 4 157.48 cm 29 kg/m2 48960.4 7 g 97.5 [degF] 98 % 98 % 74 /min 135 mm[Hg] 78 mm[Hg] Mary Santiagokarmen rivera [place] [facility] & [place] 4 09:57:05 Social History Question Answer Notes LastModified by Organizat ion Details LastModified Time Tobacco Smoking Status Never Smoker Karis larios [place] [facility] & [place] 07/08/2023 09:06:23 Do You Have An Advance Directive? No [email or web address] Information not available 05/25/2024 What Is Your Level Of Alcohol Consumption? None [email or web address] Information not available 07/08/2023 Are You Blind Or Do You Have Difficulty Seeing? No Information not available 05/25/2024 What Was The Date Of Your Most Recent Tobacco Screening? 12/13/2023 [email or web address] Information not available 05/25/2024 Do You Feel Stressed (tense, Restless, Nervous, Or Anxious, Or Unable To Sleep At Night)? [id number] [email or web address] Information not available 05/25/2024 Sex: Unknown Functional Status Question Answer Note LastModified by Organization D etails LastModified Time What is your exercise level? None [email or web address] Information not available 05/25/2024 Mental Status None recorded. Family History Relationship Description Onset Age of this Age Resolved Age Notes LastModified by Organization Details LastModified Time Mother Diabetes mellitus [email or web address] Not available 2023 08:17:40 Mother Family member 76 [email or web address] Not available 2023 08:17:59 Father Family member 79 [email or web address] Not available 2023 08:17:59 Sister Malignant neoplasm of ovary [email or web address] Not available 2023 10:22:52 Unspecified Relation Spouse [email or web address] Not available 2023 10:24:15 Notes:3 brother(s) , 3 siste r(s) . 2 son(s) , 2 daughter(s) . Medical History Condition Response Allergies/Hayfever Y Other Y Hyperthyroidism Y Thyroid Problems Y Depression Y Vision or Eye Problems Y Reflux/GERD Y Hypertension Y Gynecological History Statement/Question Response Menses Monthly N Abnormal Pap N Most Recent Mammogram 07/08/2023 Sexually Active? No Obstetrics History GPAL:G 4 P 4 0 0 4 Type Value Full Term 4 Living 4 Total 4 Immunizations Vaccine Type Date Status Note Provider Nam e and Address Organization Details Recorded Time Tdap 07/22/2022 completed [place] - NT [facility] & [place] 12/14/2023 08:17:24 Past Encounters Encounter ID Performer Location Encounter Start Date Encounter Closed Date Diagnosis/Indication Diagnosis SNOMED-CT Code Diagnosis ICD10 Code Diagnosis Note [id number] MD Venessa [facility] [address] [place] [address] 07/08/2023 08:54:13 07/08/2023 09:31:12 Adult health examination 976414504 Z00.00 Depressive disorder 3548 9007 F32.A Screening mammography of bilateral breasts 5559591961 06134 Z12.31 Cough 80160707 R05.9 [id number] Ward Gabino, MD [address] [place] [address] 08/31/2023 13:57:36 08/31/2023 14:24:14 Vertigo 694004262 R42 [id number] Ward Lloyd MD [address] [place] [address] 12/21/2023 11:13:12 12/21/2023 11:39:13 Dizziness 140185887 R42 Cough 21760836 R05.9 Arthritis 0761619 M19.90 Allergic rhinitis 929331 04 J30.9 Vertigo 429778246 R42 Insomnia 375961832 G47.0 0 [id number] Ward Lloyd MD [facility] [address] [place] [address] 06/23/2024 13:15:53 06/23/2024 13:32:13 Vertigo 183074400 R42 Varicose v eins of lower extremity 73078793 I83.189 [id number] ARIADNE CASE NP [facility] [address] [place] [address] 06/30/2024 09:40:04 06/30/2024 10:42:41 Benign paroxysmal positional vertigo nystagmus 732053069 H81.12 left side betsy hallpike induced nystagmus - performed sudheer manuever of the left side today. patient instructed to avoid head movement and head turning and sleep with ehr HOB elevated at least 45 degrees for the next 48-72 hourswill refer to vestibular PTfollow up 4-6 weeks or sooner if needed Otalgia of left ear 1010 733770 H92.02 will obtain in office audiogram Pain of le ft temporomandibular joint 1338627015 2480758 M26.622 start implementi ng self care measures including but not limited to NSAIDs as needed for TMJ pain, warm, moist compresses to the areas w/ or w/o massagept endorses jaw clenching at night. she will look to obtaining bite guardexpla ined to patient that sometimes otalgia can be referred TMJ pain [id number] YAZMIN LAWRENCE [facility] [address] [place] [address] 07/06/2024 08:48:05 07/06/2024 09:07:53 Sensorineural hearing loss 08267265 H90.3 Health Concerns Section Related Observation LastModified by Organization Detai ls LastModified Time None Recorded Concern Status LastModified by Organization Details LastModified Time None Recorded Advance Directives Directive N: Payers Encounter Date Sequence Insurance Name Policy Number Policy Mares Covered Member ID Mares Member ID Guarantor Name 08/31/2023 1 [facility] (MEDICAID REPLACEMENT - HMO) [facility] Amanda Colunga [id number] Amanda Colunga 12/21/2023 1 [facility] (MEDICAID REPLACEMENT - HMO) Amanda Colunga [id number] Amanda Colunga 06/23/2024 1 [employer] (MEDICARE REPLACEMENT HMO) Hannah Colunga [id number] Amanda Colunga 06/23/2024 2 [id number] (MEDICARE SUPPLEMENT) Amanda Colunga [id number] Amanda Colunga 06/30/2024 1 MEDIC[employer]-[place] (MEDICARE) Hannah Colunga [id number] Amanda Colunag 06/30/2024 2 [employer] (MEDICARE SUPPLEMENT) Amanda Colunga [id number] Amanda Colunga 07/06/2024 1 MED[place] (MEDICARE) Hannah Colunga [id number] Amanda Colunga 07/06/2024 2 [employer] (MEDICARE SUPPLEMENT) Amanda Colunga [id number] Amanda Colunga Notes Date Note Type Note Provider Name and Address Organization Details Recorded Time 08/31/2023 text/html She is here for ER follow-up. She is been having issues and vertigo. Came quite prominent point where she went to the emergency room. Workup was unremarkable. She was given meclizine and Zofran. No real improvement in her symptoms. She is had this in the past. Ward Lloyd MD [address], [place], [address], [facility] & [place] 08/31/2023 16:52:54 12/21/2023 text/html She has a follow-up. She is history of vertigo. She takes meclizine and on very rare occasion Valium for her dizziness. Seems to be doing well. Has a chronic cough which he takes benzoate on a p.r.n. basis. She continues to take ibuprofen for shoulder pain she also rarely takes hydrocodone. Her usage falls outside of the need for controlled substance contract. She continues see orthopedics. Seems a refill her Flonase. She struggles with insomnia. She is having difficulty falling asleep. She has been taking high dose of melatonin. Ward Lloyd MD [address], [place], [address], [facility] & [place] 12/21/2023 12:25:40 06/23/2024 text/html She is here for follow-up. She continues have issues with chronic intermittent vertigo. It is gained to the point now where she is taking meclizine almost daily. I gave her Apley's maneuvers to use but she never started them. She is asking to see an ENT for further evaluation treatment. Sudden movements of her neck cause a lot of vertigo and nausea. She has a large area of varicose veins along the right popliteal fossa which causes lot of pain especially when she drives. She is asking for further evaluation and removal if possible. Pain is her big motivating factor here Ward Lloyd MD [address], [place], [address], [facility] & [place] 06/23/2024 13:37:59 06/30/2024 text/html 06/30/24 - yea r old female in office to discuss worsening left-sided vertigo. states that she has had vertigo of the left side on and off for several years now that she used to be able to successfully treat with meclizine but over the past year has gotten worse and more frequent despite taking meclizine. states she now takes zofran but that it only helps with nausea. states her vertigo is provoked with moving her head/neck to the left or tilting her head back and it will feel like she is spinning. states she gets extremely nauseous with episodes of vertigo. states her episodes last a few minutes in length and she has to lay down flat and close her eyes until they go away. states she had a fall almost 1 year ago down a flight of stairs and that her episodes have become worse, more frequent since then. states her vertigo has kept her from performing ADLs such as driving long distances, yoga, going to the gym. she has never had an sudheer performed nor has she completed vestibular rehab therapy. pt states at its worst she will have these episodes 3-4 times per day. she also endorses left ear pain that feels like a dull ache which comes and goes not necessarily always timed with her vertigo or precedes it. she denies hearing loss. she endorses a history of chronic recurrent AOM as a child but denies ever getting tubes or any ENT surgeries. ARIADNE CASE, CHRISTA [address], [place], [address], [facility] & [place] 06/30/2024 14:32:42 07/06/2024 text/html Ms. Colunga was s een today for an audiologic evaluation due to ongoing symptoms of dizziness, and L sided otalgia per Ariadne Case APRN. Ms. Colunga reports that the positional dizziness has improved significantly following treatment from Ariadne Case APRN and physical therapy. Ms. Colunga denies hearing loss, tinnitus, drainage, aural fullness/pressure, and excessive noise exposure. Otoscopic inspection was unremarkable bilaterally. Audiometric testing revealed a mild high freq SNHL bilaterally with good word rec scores. 1-Discussed findings with Ms. Colunga and Ariadne Case APRN. 2-F/u with Ariadne as planned. 3-F/u hearing testing as directed. AGATA KEENAN, YAZMIN [address] [facility], [place], [address], [facility] & [place] 07/06/2024 09:07:45 OBGyn Episode No OBEpisode recorded.
--- OUTSIDE RECORDS SUMMARY | 2025-03-11 21:26 | XMS_ITS | Continuity of Care Document ---
Author Organization [facility] Phone Care Team Providers Care Roof Truss Detailer Name Role Phone NO, DEFINED P Primary Care Unavailable WARD MCCLELLAND Unavailable WARD MCCLELLAND Primary Attending WARD MCCLELLAND Admitting ALLERGIES AND ADVERSE REACTIONS ALLERGIES AND ADVERSE REACTIONS Code System Allergy Substance Adverse Reaction Date Reaction (Severity) Comment [place] [id number] RXNorm Mobic Adverse reaction to substance Not Specified active [id number] on June 19, 2021 8:46:[address] [facility] MEDICATIONS HOME MEDICATIONS Status RXNORM NDC Medication Dose Route Frequency Dates Comments Reported By Updated By Drug Treatment Unknown DISCHARGE MEDICATIONS Status RXNORM NDC Medication Dose Route Frequency Dates Comments Physician Updated By No Discharge Medication Info rmation Available INPATIENT MEDICATIONS Status RXNORM NDC Medication Dose Route Frequency Rat e Quantity Dates Comments Physician Updated By No Inpatient Medication Info rmation Available SOCIAL HISTORY SOCIAL HISTORY SNOMED-CT Social History Element Description Effective Dates Offered Cessation Comment UpdatedBy [id number] Smoking Status Unknown If Ever Smoked SOCIAL HISTORY - Gender Sex: Female SOCIAL HISTORY - Status : status i nformation is not available Intention in Next Year: intention information is not available SOCIAL HISTORY - Sexual Behavior Sexual Orientation Gender Identity SNOMED-CT Description SNO MED -CT Description Activity Level No of Partners Partner Type UpdatedBy Information is not available HEALTH CONCERNS Problems Concern Status Health Concern problem infor mation not available. Smoking Status Status Years Used Consumed packs p er day Health Concern smoking histo ry information not available. Family History Concern Status Health Concern family histor y information not available. ENCOUNTERS ENCOUNTER INFORMATION Reason for Visit VERTIGO Admission January 29, 2025 5:08:00 PM [facility] [id number] [facility] [id number] Discharge February 06, 2025 3:59:[address] [facility] DIS CHARGED TO HOME OR SELF CARE ENCOUNTER DIAGNOSES Notes information is not aubrey ilable. Code System Diagnosis Onset Date Diagnosis information is not available. ABSTRACT DIAGNOSES Code System Diagnosis Updated By R42 ICD10 DIZZINESS AND GIDDINESS [id number] on February 09, 2025 3:09:43 PM [place] R42 ICD10 DIZZINESS AND GIDDINESS [id number] on February 09, 2025 3:09:44 PM [place] CARE TEAM Care Roof Truss Detailer Role DEFINED NO Primary Care WARD MCCLELLAND Referring WARD MCCLELLAND Primary Attending WARD MCCLELLAND Admitting CARE TEAM CARE clinical informatics specialist Role on Team Status Start Date End Date Update d By NO DEFINED PRIMARY C PCP normal January 25, 2025 2:12:48 PM [place] February 06, 2025 3:59:[address] [facility] [id number] on January 25, 2025 2:12:48 PM [place] KRYSTIN KEN Referring normal January 25, 2025 2:12:48 PM [place] February 06, 2025 3:59:[address] [facility] [id number] on January 25, 2025 2:12:[address] [facility] KRYSTIN KEN Attending normal January 25, 2025 2:12:48 PM [place] February 06, 2025 3:59:00 AM [place] [id number] on January 25, 2025 2:12:48 PM [place] KRYSTIN KEN Admitting normal January 25, 2025 2:12:48 PM [place] February 06, 2025 3:59:[address] [facility] [id number] on January 25, 2025 2:12:48 PM MAC
[2025-03-11 21:27] VITALS: BP 157/78; PULSE 63; RESP 16; TEMP 36.6; O2SAT 99; BMI 29.6
[2025-03-11 21:31] VITALS: BP 143/70; PULSE 65; O2SAT 97
[2025-03-11 21:35] VITALS: BP 144/76; PULSE 73; O2SAT 99
--- NOTE | 2025-03-11 21:50 | XR_ITS ---
PROCEDURE INFORMATION: Exam: XR Left Forearm Exam date and time: 03/11/2025 9:58 PM Age: 64 years old Clinical indication: Pain; Lower or forearm; Left; Additional info: Left elbow TECHNIQUE: Imaging protocol: Radiologic exam of the left forearm. Views: 2 views. COMPARISON: CR XR FOREARM LT 2V 03/11/2025 9:58 PM FINDINGS: Bones/joints: Normal. Soft tissues: Normal. IMPRESSION: No acute findings.
--- NOTE | 2025-03-11 21:50 | XR_ITS ---
PROCEDURE INFORMATION: Exam: XR Left Elbow Exam date and time: 03/11/2025 9:58 PM Age: 64 years old Clinical indication: Pain; Elbow; Left; Additional info: Left elbow TECHNIQUE: Imaging protocol: Radiologic exam of the left elbow. Views: 3 or more views. COMPARISON: CR XR HAND LT 2V 07/22/2022 1:29 PM FINDINGS: Bones/joints: Normal. Soft tissues: Normal. IMPRESSION: No acute findings.
--- NOTE | 2025-03-11 21:54 | HMH.EDGENADL ---
Discharge Plan Disposition Patient Disposition: Home, Self-Care Prescriptions Prescriptions: New ibuprofen 800 mg tablet 800 mg PO TID PRN (Reason: pain) 7 Days Qty: 20 0RF cyclobenzaprine 5 mg tablet 5 mg PO TID PRN (Reason: muscle spasm) 5 Days Qty: 15 0RF No Action fluticasone propionate 50 mcg/actuation spray,suspension intranasal Patient Comments: USE 1 SPRAY(S) IN EACH NOSTRIL ONCE DAILY estradiol 0.01 % (0.1 mg/gram) cream vaginal Patient Comments: INSERT 1 GRAM INTO THE VAGINA EVERY NIGHT AT BEDTIME FOR 2 WEEKS. THEN 2 TIMES A WEEK THERE AFTER meclizine 25 mg tablet 25 mg PO Q6HP PRN (Reason: dizziness) Qty: 30 0RF Referrals Follow up/Referrals: Eulogio Orellana DO [Staff Physician] - See instructions Miller Lloyd MD [Primary Care Provider] - See instructions Activity Restrictions/Add. Instructions Additional Instructions/Restrictions: Your symptoms are consistent with a brachial radialis muscle strain or tendon injury. I recommend that you wear a sling as needed for comfort and follow-up with Dr. Orellana to be considered for a possible outpatient MRI. Clinical Impressions Clinical Impression: Brachioradialis muscle tenderness Print Language Print Language: Danish Discharge ED Provider: Amanda Cramer General Adult HPI General Chief complaint: Extremity Injury, Upper Stated complaint: left arm pain Time Seen by Provider: 03/11/25 21:29 Mode of Arrival: Ambulatory Source of Information: Patient Description of Symptoms (Recalled from ER Triage Doc. by RN): Patient hurt her arm 2 weeks ago- today was lifting a 40 lb bag and felt like her arm was torn into two- Patient left arm is injured- able to move fingers but has increased pain in arm when turning wrist and facing palms up History of Present Illness HPI narrative: Patient is a 64-year-old female presenting today with left forearm discomfort. Injured this several weeks ago but exacerbated today while lifting a 40 pound bag and felt like her mid forearm was 22. She describes pain over the radial aspect of her proximal forearm. She is able to move it but with significant tenderness and pain. Also has pain with any type of pronation and supination of that arm. Related Data Home Medications ?Medication ?Instructions ?Recorded ?Confirmed estradiol 0.01% (0.1 mg/gram) vaginal 08/17/24 01/11/25 vaginal cream fluticasone propionate 50 intranasal 08/17/24 01/11/25 mcg/actuation nasal spray,suspension Previous Rx's ?Medication ?Instructions ?Recorded meclizine 25 mg tablet 25 mg PO Q6HP PRN dizziness #30 08/29/23 tabs cyclobenzaprine 5 mg tablet 5 mg PO TID PRN muscle spasm 5 03/11/25 days #15 tabs ibuprofen 800 mg tablet 800 mg PO TID PRN pain 7 days #20 03/11/25 tabs Allergies Allergy/AdvReac Type Severity Reaction Status Date / Time meloxicam (From Mob) Allergy Verified 01/11/25 11:07 [facility] Disclaimer: The information contained in this section may have been updated after the patient was seen, as this information can be updated by other users. Surgical History History of hysterectomy History of colonoscopy Family History Other No significant family history Social History Smoking Status: Never smoker alcohol intake: never current occupational status: retired and other Travel in the last 8 weeks?: None Have you lived/traveled outside [place] in past 30 days?: No Contact w/someone who lives/traveled outside [place] past 30 days?: No Exposure to someone with infectious disease in past 14 days?: No Do you have a fever (greater than 100.4 F or 38 C)?: No Have you tested positive for COVID-19?: No Exposed to someone with COVID-19 in past 14 days?: No Do you have a sore throat?: No Do you have a cough?: No Do you have any weakness?: No Do you have any diarrhea?: No Are you experiencing any unusual bleeding?: No Do you have any muscle aches/pain?: No Do you have any abdominal pain?: No Are you experiencing loss of taste or smell?: No Other Medical History Have you received the Flu Vaccine for this season: No Have you received the Pneumonia Vaccine: No ROS Obtained: Yes All systems reviewed & no additional complaints except as documented Physical Exam General General appearance: alert Respiratory Respiratory exam: Present normal lung sounds bilaterally Cardiovascular Cardiovascular exam: Present regular rate Extremities Exam Extremities exam: Present other (Left upper extremity there is tenderness along the brachial radialis muscle on the left proximal forearm has normal range of motion with flexion extension of the elbow and internal/external rotation neurovascular intact) Neurological Exam Neurological exam: Present alert and oriented X3 Medical Decision Making Medical Records Screening: Per USPSTF and CDC recommendations, given the prevalence of disease in our region, it is our hospital?s policy to screen for HIV and viral Hepatitis for all patients aged 18 and over and those with ongoing risk factors. Tu Inquiry Pt receiving controlled substance: No Vital Signs: 03/11/25 21:27 03/11/25 21:31 03/11/25 21:35 Temperature 97.9 F Temperature Source Oral Pulse Rate 65 73 Pulse Rate [Right Radial] 63 Respiratory Rate 16 Blood Pressure 143/70 H 144/76 H Blood Pressure [Right Arm] 157/78 H Blood Pressure Mean [Right Arm] 104 Blood Pressure Source [Right Arm] Automatic Cuff Blood Pressure Position [Right Arm] Supine 02 Sat by Pulse Oximetry 99 97 99 Oxygen Delivery Method Room Air 03/11/25 22:12 Temperature Temperature Source Pulse Rate 33 L Pulse Rate [Right Radial] Respiratory Rate Blood Pressure 136/77 Blood Pressure [Right Arm] Blood Pressure Mean [Right Arm] Blood Pressure Source [Right Arm] Blood Pressure Position [Right Arm] 02 Sat by Pulse Oximetry 88 L Oxygen Delivery Method Orders (Tests/Meds): ED MEDICATIONS Discontinued Medications Generic Name Dose Route Start Last Admin Trade Name Freq PRN Reason Stop Dose Admin Acetaminophen 1,000 mg 03/11/25 21:52 03/11/25 22:07 Acetaminophen 500mg Tab PO 03/11/25 21:53 1,000 mg ONCE ONE Administration ORDERS Category Date Time Status Elbow XR left mininum 3 views [XR elbow LT min 3V] Stat Exams 03/11/25 21:50 Taken Forearm XR left 2 views [XR forearm LT 2V] Stat Exams 03/11/25 21:50 Taken Medical Decision Narrative: 64-year-old with above history and physical has focal tenderness over the brachial radialis after lifting a heavy bag. I suspect she has had a partial muscle tear or possible tendon injury. She may require an MRI depending on her trajectory of improvement. Will get plain films rule out any fracture dislocation which I think are unlikely. She has an NSAID allergy therefore Tylenol has been administered. Will give her prescription of muscle relaxers to go home with an orthopedic referral if her x-rays were normal. X-rays performed which I personally interpreted shows no evidence of any fracture or dislocation patient was placed in a sling for comfort and advised to follow-up with orthopedic surgery for evaluation of possible MRI outpatient I did discuss further with her NSAID allergy and she is able to take NSAIDs such as ibuprofen and naproxen with out any difficulty with just meloxicam that she has had issues with in the past therefore prescription of ibuprofen and Flexeril have been sent to her pharmacy return precautions emphasized. Critical Care Critical Care Time Critical Care Time: No
[2025-03-11] MEDS: ACETAMINOPHEN 500MG TAB 1000 MG PO (22:07)
[2025-03-11 22:12] VITALS: BP 136/77; PULSE 33; O2SAT 88
[2025-03-11 23:01] VITALS: BP 138/74; PULSE 62; RESP 16; TEMP 36.6; O2SAT 98
== END 2025-03-11 23:03 | disposition home or self-care (01) ==
PROVIDERS: Emergency Provider Student in an Organized Health Care Education/Training Program; PCP Family Medicine
DX: M79.632 Pain in left forearm (principal); X50.0XXA Overexertion from strenuous movement or load, initial encounter
CPT/HCPCS: 73080; 73090; 99284

== ENCOUNTER 2025-05-15 14:21 | Outpatient (CLI) | payer MEDICARE, OTHER, SELFPAY ==
--- NOTE | 2025-05-15 14:22 | XR_ITS ---
FINAL REPORT CLINICAL HISTORY: Left ankle pain COMPARISON: 09/19/2024 FINDINGS: LEFT ANKLE Three views demonstrate healing fracture deformity of the distal fibula. The ankle mortise is intact. There is mild soft tissue edema. IMPRESSION: Mild soft tissue edema and healing distal fibular fracture. Reviewed, Interpreted and Dictated by Link Carrion MD Transcribed by Haley Nunez Authenticated and [facility]
== END 2025-05-15 23:59 | disposition home or self-care (01) ==
LOC: RAD 14:22
PROVIDERS: PCP Family Medicine; Visit Provider Physician Assistant
DX: S82.832D Other fracture of upper and lower end of left fibula, subsequent encounter for closed fracture with routine healing (principal)
CPT/HCPCS: 73610